=== PATIENT | female | born 1960 | race Caucasian/White ===

== ENCOUNTER 2016-05-24 20:29 | Emergency (ER) | payer BC ==
[2016-05-24 20:35] VITALS: TEMP 98.2
--- NOTE | 2016-05-24 21:03 | ED ---
Head Injury HPI - General Chief complaint: Head Injury Stated complaint: head injury/bucked off horse Time Seen by Provider: 05/24/16 20:42 Source: patient Mode of arrival: wheelchair Limitations: no limitations - History of Present Illness Initial comments: This patient's 55-year-old woman who comes in complaining that she was thrown from a horse about 5 hours ago. She states that she fell, struck her head against ground resulting in a crack to her helmet. She is not sure if she lost consciousness she believes she was dazed. The patient states that she got up and continued riding. She then states that another horse was acting up and rather than let her granddaughter ride a horse, she walked that horse home. She subsequently developed some nausea and has had 2 rounds of vomiting. She has a generalized headache, 8 out of 10 severity, constant, without worsening or relieving factors. She states she was persuaded to come here when she told her associated about the symptoms. MD Complaint: head injury, fall Onset/Timin -: hour(s) Mechanism of Injury: animal related injury Loss of Consciousness: unsure Place: outdoors Severity scale (1-10): 8 Quality: aching Consistency: constant Other Injuries: neck Associated Symptoms: nausea, vomiting, neck pain - Related Data Home Medications Medication Instructions Recorded Confirmed Gabapentin [Neurontin] 800 mg PO TID 07/10/15 05/24/16 Metaxalone [Skelaxin] 800 mg PO BID 07/10/15 05/24/16 clonazePAM [KlonoPIN] 0.5 mg PO BID PRN 07/10/15 05/24/16 rOPINIRole HCL [Requip] 0.5 mg PO HS 07/10/15 05/24/16 Cholecalciferol [Vitamin D3] 1,000 unit PO DAILY 05/24/16 05/24/16 EPINEPHrine (Auto Inject) [Epipen] 0.3 mg IM ONCE PRN 05/24/16 05/24/16 Loratadine [Claritin] 10 mg PO DAILY PRN 05/24/16 05/24/16 Magnesium 200 mg PO DAILY 05/24/16 05/24/16 Meclizine [Antivert] 25 mg PO TID PRN 05/24/16 05/24/16 Melatonin 5 mg PO HS 05/24/16 05/24/16 diphenhydrAMINE HCL [Benadryl] 25 mg PO DAILY PRN 05/24/16 05/24/16 Previous Rx's Medication Instructions Recorded Hydrocodone/Acetaminophen [[place] 1 each PO Q6HR PRN #20 tab 05/24/16 5-325] Allergies/Adverse reactions: Allergies Allergy/AdvReac Type Severity Reaction Status Date / Time bee pollen Allergy Unknown Verified 05/24/16 21:09 cephalexin monohydrate Allergy Rash/Hives Verified 05/24/16 21:09 [From Keflex] duloxetine [From Cymbalta] Allergy Unknown Verified 05/24/16 21:09 Penicillins Allergy Rash/Hives Verified 05/24/16 21:09 pregabalin [From Lyrica] Allergy Unknown Verified 05/24/16 21:09 meperidine HCl [From Demerol] AdvReac Hallucinati Verified 05/24/16 21:09 ons Review of Systems ROS Statement: Those systems with pertinent positive or pertinent negative responses have been documented in the HPI. ROS Other: All systems not noted in ROS Statement are negative. Constitutional: Denies: fever, chills, weakness Eyes: Denies: eye pain, vision change ENT: Denies: ear pain, hearing loss, epistaxis Respiratory: Denies: cough, dyspnea Cardiovascular: Denies: chest pain, palpitations Gastrointestinal: Reports: nausea, vomiting. Denies: abdominal pain, diarrhea, hematemesis Musculoskeletal: Reports: back pain Skin: Denies: rash Neurological: Denies: headache, weakness, numbness Hematological/Lymphatic: Denies: easy bleeding Past Medical History Past Medical History: Fibromyalgia History of Any Multi-Drug Resistant Organisms: None Reported Past Surgical History: Appendectomy, Cholecystectomy, Orthopedic Surgery Additional Past Surgical History / Comment(s): eye sx, ovarian cyst Past Psychological History: No Psychological Hx Reported Smoking Status: Never smoker Past Alcohol Use History: Occasional Past Drug Use History: None Reported General Exam Limitations: no limitations General appearance: alert, in no apparent distress Head exam: Present: atraumatic, normocephalic, normal inspection Eye exam: Present: normal appearance, PERRL, EOMI. Absent: scleral icterus, conjunctival injection, nystagmus, periorbital swelling, periorbital tenderness ENT exam: Present: normal oropharynx, TM's normal bilaterally Neck exam: Present: normal inspection, tenderness, full ROM Respiratory exam: Present: normal lung sounds bilaterally. Absent: respiratory distress, wheezes, rales, rhonchi, stridor, chest wall tenderness Cardiovascular Exam: Present: regular rate, normal rhythm, normal heart sounds. Absent: systolic murmur, diastolic murmur, rubs, gallop GI/Abdominal exam: Present: soft. Absent: distended, tenderness, guarding, rebound, mass Extremities exam: Present: normal inspection, full ROM, normal capillary refill. Absent: tenderness Back exam: Present: normal inspection, vertebral tenderness (Upper lumbar area) . Absent: CVA tenderness (R), CVA tenderness (L) Neurological exam: Present: alert, oriented X3, CN II-XII intact. Absent: motor sensory deficit Skin exam: Present: warm, dry, intact, normal color. Absent: rash Course Vital Signs 05/24/16 20:32 Temperature 98.2 F Pulse Rate 90 Respiratory 20 Rate Blood Pressure 138/72 O2 Sat by Pulse 99 Oximetry Medical Decision Making - Lab Data Result diagrams: 05/24/16 20:40 05/24/16 20:40 Lab Results 05/24/16 05/24/16 05/24/16 Range/Units 20:40 20:40 20:40 WBC 7.9 (3.8-10.6) k/uL RBC 4.65 (3.80-5.40) m/uL Hgb 14.0 (11.4-16.0) gm/dL Hct 42.8 (34.0-46.0) % MCV 92.1 (80.0-100.0) fL MCH 30.0 (25.0-35.0) pg MCHC 32.6 (31.0-37.0) g/dL RDW 13.2 (11.5-15.5) % Plt Count 177 (150-450) k/uL Neutrophils % 66 % Lymphocytes % 27 % Monocytes % 4 % Eosinophils % 1 % Basophils % 1 % Neutrophils # 5.3 (1.3-7.7) k/uL Lymphocytes # 2.1 (1.0-4.8) k/uL Monocytes # 0.3 (0-1.0) k/uL Eosinophils # 0.1 (0-0.7) k/uL Basophils # 0.1 (0-0.2) k/uL Sodium 142 (137-145) mmol/L Potassium 4.6 (3.5-5.1) mmol/L Chloride 106 (98-107) mmol/L Carbon Dioxide 29 (22-30) mmol/L Anion Gap 7 mmol/L BUN 12 (7-17) mg/dL Creatinine 0.91 (0.52-1.04) mg/dL Est GFR (MDRD) Af Amer >60 (>60 ml/min/1.73 sqM) Est GFR (MDRD) Non-Af >60 (>60 ml/min/1.73 sqM) Glucose 94 (74-99) mg/dL Calcium 9.7 (8.4-10.2) mg/dL Urine Color Urine Appearance (Clear) Urine pH (5.0-8.0) Ur Specific [place] (1.001-1.035) Urine Protein (Negative) Urine Glucose (UA) (Negative) Urine Ketones (Negative) Urine Blood (Negative) Urine Nitrite (Negative) Urine Bilirubin (Negative) Urine Urobilinogen (<2.0) mg/dL Ur Leukocyte Esterase (Negative) Urine WBC (0-5) /hpf Urine HCG, Qual Not Detected (Not Detectd) 05/24/16 Range/Units 20:40 WBC (3.8-10.6) k/uL RBC (3.80-5.40) m/uL Hgb (11.4-16.0) gm/dL Hct (34.0-46.0) % MCV (80.0-100.0) fL MCH (25.0-35.0) pg MCHC (31.0-37.0) g/dL RDW (11.5-15.5) % Plt Count (150-450) k/uL Neutrophils % % Lymphocytes % % Monocytes % % Eosinophils % % Basophils % % Neutrophils # (1.3-7.7) k/uL Lymphocytes # (1.0-4.8) k/uL Monocytes # (0-1.0) k/uL Eosinophils # (0-0.7) k/uL Basophils # (0-0.2) k/uL Sodium (137-145) mmol/L Potassium (3.5-5.1) mmol/L Chloride (98-107) mmol/L Carbon Dioxide (22-30) mmol/L Anion Gap mmol/L BUN (7-17) mg/dL Creatinine (0.52-1.04) mg/dL Est GFR (MDRD) Af Amer (>60 ml/min/1.73 sqM) Est GFR (MDRD) Non-Af (>60 ml/min/1.73 sqM) Glucose (74-99) mg/dL Calcium (8.4-10.2) mg/dL Urine Color Colorless Urine Appearance Clear (Clear) Urine pH 5.5 (5.0-8.0) Ur Specific [place] 1.001 (1.001-1.035) Urine Protein Negative (Negative) Urine Glucose (UA) Negative (Negative) Urine Ketones Negative (Negative) Urine Blood Negative (Negative) Urine Nitrite Negative (Negative) Urine Bilirubin Negative (Negative) Urine Urobilinogen <2.0 (<2.0) mg/dL Ur Leukocyte Esterase Trace H (Negative) Urine WBC 1 (0-5) /hpf Urine HCG, Qual (Not Detectd) Disposition Clinical Impression: Closed head injury, Back pain Disposition: HOME SELF-CARE Condition: Fair Instructions: Head Injury (ED), Acute Low Back Pain (ED) Prescriptions: Hydrocodone/Acetaminophen [[place] 5-325] 1 each PO Q6HR PRN #20 tab PRN Reason: Pain Referrals: Corbin Johnson DO [Primary Care Provider] - 1-2 days Bryce Michael DO [Doctor of Osteopathic Medicine] - 1-2 days
--- NOTE | 2016-05-24 21:24 | XR ---
EXAMINATION TYPE: XR chest 1V portable DATE OF EXAM: 05/24/2016 9:13 PM COMPARISON: NONE HISTORY: Injury. Chest pain. TECHNIQUE: Single frontal view of the chest is obtained. FINDINGS: Heart and mediastinum are normal. Lungs are clear. There is no evidence of pneumothorax. T here are chest leads. IMPRESSION: Normal chest
--- NOTE | 2016-05-24 21:37 | CT ---
EXAMINATION TYPE: CT brain sana wo con DATE OF EXAM: 05/24/2016 9:29 PM COMPARISON: None. HISTORY: pt states she was thrown off her horse CT DLP: 1397.9 mGycm Automated exposure control for dose reduction was used. TECHNIQUE: CT scan of the head and cervical spine are performed without contrast. FINDINGS: Ventricles and sulci appear normal. There is no mass effect nor midline shift. There is n o evidence of intracranial hemorrhage. Calvarium is intact. Cervical vertebra have normal alignment. There is mild spurring of the endplates from C4 to C6. Facet joints appear intact. Skull base is intact. There is no sign of a fracture. IMPRESSION: Negative CT scan of the brain. Minor degenerative disc changes in the cervical spine. No fracture.
[2016-05-24] MEDS ORDERED: HYDROcodone/APAP 5-325MG 1 EACH TAB PO STA (22:19)
--- NOTE | 2016-05-24 22:29 | XR ---
EXAM: XR Lumbar Spine, 2 or 3 Views. CLINICAL HISTORY: Reason: Pain TECHNIQUE: Frontal and lateral views of the lumbar spine. COMPARISON: No relevant prior studies available. FINDINGS: There are 5 nonrib-bearing lumbar type vertebra in normal alignment. Slight compression deformity at T12 is felt to be chronic. No acute fracture. Multilevel disc degeneration with endplate spurring. Surgical clips anterior to the lumbosacral junction and in the upper abdomen. IMPRESSION: No acute fracture. Normal alignment. Mild multilevel degenerative changes.
[2016-05-24 22:38] LABS: Appearance,Urine Clear (Clear); Bilirubin,Urine Negative (Negative); Glucose,Urine (UA) Negative (Negative); Ketones,Urine Negative (Negative); Leukocyte Esterase,Urine Trace (Negative); Nitrite,Urine Negative (Negative); PH, Urine 5.5 (5.0-8.0); Particle Count 150; Protein,Urine Negative (Negative); Specific Gravity,Urine 1.001 (1.001-1.035); UA Billing (MACRO vs. MICRO) MICRO; Urobilinogen,Urine <2.0 mg/dL (<2.0); WBC,Urine 1 /hpf (0-5)
[2016-05-24 22:41] LABS: Anion Gap 7 mmol/L; Basophils # (A) 0.1 k/uL (0-0.2); Basophils % (A) 1 %; Blood Urea Nitrogen 12 mg/dL (7-17); CH 30.6; CHCM 33.4; Calcium 9.7 mg/dL (8.4-10.2); Carbon Dioxide 29 mmol/L (22-30); Chloride 106 mmol/L (98-107); Eosinophils # (A) 0.1 k/uL (0-0.7); Eosinophils % (A) 1 %; Glucose 94 mg/dL (74-99); HCT 42.8 % (34.0-46.0); HDW 2.28; Luc % (Auto) 1; Lymphocytes # (A) 2.1 k/uL (1.0-4.8); Lymphocytes % (A) 27 %; MCHC 32.6 g/dL (31.0-37.0); MCV 92.1 fL (80.0-100.0); Mean Platelet Volume 8.9; Monocytes # (A) 0.3 k/uL (0-1.0); Monocytes % (A) 4 %; Neutrophils # (A) 5.3 k/uL (1.3-7.7); Neutrophils % (A) 66 %; Non-African American GFR(MDRD) >60 (>60 ml/min/1.73 sqM); Potassium 4.6 mmol/L (3.5-5.1); RBC 4.65 m/uL (3.80-5.40); RDW 13.2 % (11.5-15.5); Sodium 142 mmol/L (137-145); WBC 7.9 k/uL (3.8-10.6); WBC (Perox) 8.15
[2016-05-24 23:40] VITALS: BP 143/78; PULSE 62; RESP 18
== END 2016-05-24 23:40 | disposition home or self-care (01) ==
LOC: EC 20:29
DX: S09.90XA Unspecified injury of head, initial encounter (principal); M54.5 Low back pain; M54.2 Cervicalgia; R11.2 Nausea with vomiting, unspecified; M79.7 Fibromyalgia; V80.010A Animal-rider injured by fall from or being thrown from horse in noncollision accident, initial encounter; Y93.52 Activity, horseback riding; Z79.899 Other long term (current) drug therapy; Z88.5 Allergy status to narcotic agent; Z88.0 Allergy status to penicillin; Z88.8 Allergy status to other drugs, medicaments and biological substances; Z88.1 Allergy status to other antibiotic agents; Z91.030 Bee allergy status
CPT/HCPCS: 36415; 70450; 71010; 72100; 72125; 80048; 81001; 81025; 85025; 93005; 99284

== ENCOUNTER 2016-05-26 23:34 | Emergency (ER) | payer BC ==
[2016-05-26 23:44] VITALS: TEMP 97.9
[2016-05-27] MEDS ORDERED: ONDANSETRON 4 MG ODT STARTER PACK 2 TAB BTL PO STA (02:06)
[2016-05-27] MEDS ORDERED: MECLIZINE 12.5 MG TAB PO STA (02:06)
[2016-05-27] MEDS ORDERED: diphenhydrAMINE 50 MG CAP PO STA (02:07)
[2016-05-27] MEDS ORDERED: methylPREDNISolone SOD SUCCI 125 MG/2 ML VIAL IM ONE (02:07)
--- NOTE | 2016-05-27 02:07 | ED ---
Nausea/Vomiting/Diarrhea HPI - General Chief complaint: Nausea/Vomiting/Diarrhea Stated complaint: Poss Allergic Reac - Revisit Time Seen by Provider: 05/27/16 01:21 Source: patient, RN notes reviewed, old records reviewed Mode of arrival: ambulatory Limitations: no limitations - History of Present Illness Initial comments: Patient is a 55 year old female with chief complaint of headache, dizziness, nausea, and vomiting. Patient was seen in the [facility] 2 days ago after being bucked off a horse and had head trauma, CT preformed at that time was negative. Patient states she was discharged with norco for her headache and neck and back pain. She reports she took the norco today, and broke out in hives. She states that she vomited multiple times today, and feels like the room is spinning. - Related Data Home Medications Medication Instructions Recorded Confirmed Gabapentin [Neurontin] 800 mg PO TID 07/10/15 05/24/16 Metaxalone [Skelaxin] 800 mg PO BID 07/10/15 05/24/16 clonazePAM [KlonoPIN] 0.5 mg PO BID PRN 07/10/15 05/24/16 rOPINIRole HCL [Requip] 0.5 mg PO HS 07/10/15 05/24/16 Cholecalciferol [Vitamin D3] 1,000 unit PO DAILY 05/24/16 05/24/16 EPINEPHrine (Auto Inject) [Epipen] 0.3 mg IM ONCE PRN 05/24/16 05/24/16 Loratadine [Claritin] 10 mg PO DAILY PRN 05/24/16 05/24/16 Magnesium 200 mg PO DAILY 05/24/16 05/24/16 Meclizine [Antivert] 25 mg PO TID PRN 05/24/16 05/24/16 Melatonin 5 mg PO HS 05/24/16 05/24/16 diphenhydrAMINE HCL [Benadryl] 25 mg PO DAILY PRN 05/24/16 05/24/16 Previous Rx's Medication Instructions Recorded Hydrocodone/Acetaminophen [[place] 1 each PO Q6HR PRN #20 tab 05/24/16 5-325] Meclizine HCl 12.5 mg PO TID #15 tab 05/27/16 Ondansetron Odt [Zofran Odt] 4 mg PO Q8HR PRN #12 tab 05/27/16 Allergies Allergy/AdvReac Type Severity Reaction Status Date / Time acetaminophen [From [place]] Allergy Unknown Verified 05/26/16 23:45 bee pollen Allergy Unknown Verified 05/26/16 23:44 cephalexin monohydrate Allergy Rash/Hives Verified 05/26/16 23:44 [From Keflex] duloxetine [From Cymbalta] Allergy Unknown Verified 05/26/16 23:44 hydrocodone [From [place]] Allergy Unknown Verified 05/26/16 23:45 Penicillins Allergy Rash/Hives Verified 05/26/16 23:44 pregabalin [From Lyrica] Allergy Unknown Verified 05/26/16 23:44 meperidine HCl [From Demerol] AdvReac Hallucinati Verified 05/26/16 23:44 ons Review of Systems ROS Statement: Those systems with pertinent positive or pertinent negative responses have been documented in the HPI. ROS Other: All systems not noted in ROS Statement are negative. Past Medical History Past Medical History: Fibromyalgia History of Any Multi-Drug Resistant Organisms: None Reported Past Surgical History: Appendectomy, Cholecystectomy, Orthopedic Surgery Additional Past Surgical History / Comment(s): eye sx, ovarian cyst Past Psychological History: No Psychological Hx Reported Smoking Status: Never smoker Past Alcohol Use History: Occasional Past Drug Use History: None Reported General Exam Limitations: no limitations General appearance: alert, in no apparent distress Head exam: Present: atraumatic, normocephalic, normal inspection Eye exam: Present: normal appearance, PERRL, EOMI. Absent: scleral icterus, conjunctival injection, periorbital swelling ENT exam: Present: normal exam, mucous membranes moist Neck exam: Present: normal inspection. Absent: tenderness, meningismus, lymphadenopathy Respiratory exam: Present: normal lung sounds bilaterally. Absent: respiratory distress, wheezes, rales, rhonchi, stridor Cardiovascular Exam: Present: regular rate, normal rhythm, normal heart sounds. Absent: systolic murmur, diastolic murmur, rubs, gallop, clicks GI/Abdominal exam: Present: soft, normal bowel sounds. Absent: distended, tenderness, guarding, rebound, rigid Extremities exam: Present: normal inspection, full ROM, normal capillary refill. Absent: tenderness, pedal edema, joint swelling, calf tenderness Back exam: Present: normal inspection Neurological exam: Present: alert, oriented X3, CN II-XII intact Psychiatric exam: Present: normal affect, normal mood Skin exam: Present: warm, dry, intact, normal color. Absent: rash Course Vital Signs 05/26/16 05/27/16 23:42 04:39 Temperature 97.9 F Pulse Rate 66 58 L Respiratory 18 16 Rate Blood Pressure 139/70 132/80 O2 Sat by Pulse 100 94 L Oximetry Medical Decision Making - Medical Decision Making Patient is a 56 year old female with allergic reaction to pain medication she received after a closed head injury 2 days ago after being bucked off a horse. Patient states she has been vomiting, and the room is spining. Patient had a subsequent CT of brain due to these alarming symptoms. CT was negative. Patient given Toradol, zofran, meclinzine, benadryl and steroids. PAtient reports that she is feeling much better, states that she is not dizzy at this time and wants to go home. Patient given a neurologist referral, diagnosed with post concussive syndrome. Disposition Clinical Impression: Allergic reaction caused by a drug, Post-concussion syndrome Disposition: HOME SELF-CARE Condition: Good Instructions: Acute Nausea and Vomiting (ED), Post Concussion Syndrome (ED) Additional Instructions: Follow-up with neurologist to discuss postconcussive syndrome. Take nausea medicine and dizzy medication. Patient advised to return to emergency Department if any alarming signs or symptoms occur. Continue to take Benadryl for the next 24 hours. Prescriptions: Meclizine HCl 12.5 mg PO TID #15 tab Ondansetron Odt [Zofran Odt] 4 mg PO Q8HR PRN #12 tab PRN Reason: Nausea Referrals: Corbin Johnson DO [Primary Care Provider] - 1-2 days Jeffery Moncada MD [STAFF PHYSICIAN] - 1-2 days Time of Disposition: 04:20
--- NOTE | 2016-05-27 03:02 | CT ---
EXAM: CT Head Without Intravenous Contrast. CLINICAL HISTORY: Vomiting TECHNIQUE: Axial computed tomography images of the head/brain without intravenous contrast. CTDI is 57.4 mGy and DLP is 1012.7 mGy-cm This CT exam was performed using one or more of the following dose reduction techniques: automated exposure control, adjustment of the mA and/or kV according to patient size, and/or use of iterative reconstruction technique. COMPARISON: 05/24/2016 FINDINGS: Brain: No evidence of acute infarct, hemorrhage, mass or edema. No significant white matter disease. Ventricles: Unremarkable. No ventriculomegaly. Bones/joints: Unremarkable. No acute fracture. Soft tissues: Unremarkable. Sinuses: Unremarkable as visualized. No acute sinusitis. Mastoid air cells: Unremarkable as visualized. No mastoid effusion. IMPRESSION: No acute findings.
[2016-05-27] MEDS ORDERED: KETOROLAC 60 MG/2 ML VIAL IM STA (03:44)
[2016-05-27 04:40] VITALS: BP 132/80; PULSE 58; RESP 16
== END 2016-05-27 04:40 | disposition home or self-care (01) ==
LOC: EC 23:34
DX: R11.2 Nausea with vomiting, unspecified (principal); R51 Headache; R19.7 Diarrhea, unspecified; T40.605A Adverse effect of unspecified narcotics, initial encounter; F07.81 Postconcussional syndrome; M79.7 Fibromyalgia; Z79.899 Other long term (current) drug therapy; Z88.6 Allergy status to analgesic agent; Z91.030 Bee allergy status; Z88.1 Allergy status to other antibiotic agents; Z88.0 Allergy status to penicillin; Z88.5 Allergy status to narcotic agent; Z88.8 Allergy status to other drugs, medicaments and biological substances
CPT/HCPCS: 99284; 96372 ×2; 70450; J2930; J1885; S0119

== ENCOUNTER 2016-08-04 21:32 | Emergency (ER) | payer BC ==
[2016-08-04] MEDS ORDERED: HYDROmorphone 1 MG/ML 1 ML SYRINGE IVP STA (21:55)
[2016-08-04] MEDS ORDERED: RX INFO: IV CONTRAST WAS GIVEN 1 EACH MISC MISCELLANE PRN (21:55)
[2016-08-04] MEDS ORDERED: SODIUM CHLORIDE 0.9% 1,000 ML IV STA (21:55)
[2016-08-04 21:56] VITALS: RESP 20; TEMP 97.3
[2016-08-04 21:57] LABS: Glucose,Whole Blood 91 mg/dL (75-99)
[2016-08-04 21:58] VITALS: BP 134/89; PULSE 81
--- NOTE | 2016-08-04 21:59 | ED ---
General Adult HPI - General Chief complaint: Trauma Stated complaint: thrown off horse/loss of consciousness Time Seen by Provider: 08/04/16 21:48 Source: patient, family, RN notes reviewed Mode of arrival: wheelchair Limitations: no limitations - History of Present Illness Initial comments: Patient is a pleasant 56-year-old female presenting to the emergency department after falling off a horse. Patient is unclear exact mechanism. Patient does recall being on the horse and believes it was spooked. Patient next remembers waking up on the ground. Patient was wearing a helmet. Patient denies any headache. Patient has some neck discomfort however this is chronic and unchanged. Patient has some lower back discomfort however is unclear if this is changed from her chronic discomfort or not. No chest pain. No dyspnea. No abdominal pain. Patient has some discomfort of the back of her left hip. Patient was able to take a few steps after the accident. Patient does not feel confused. - Related Data Home Medications Medication Instructions Recorded Confirmed Gabapentin [Neurontin] 800 mg PO TID 07/10/15 08/04/16 clonazePAM [KlonoPIN] 0.5 mg PO BID PRN 07/10/15 08/04/16 Melatonin 5 mg PO HS 05/24/16 08/04/16 Cyclobenzaprine [Flexeril] 5 mg PO QAM 08/04/16 08/04/16 Cyclobenzaprine [Flexeril] 10 mg PO HS 08/04/16 08/04/16 FLUoxetine HCL [PROzac] 40 mg PO BID 08/04/16 08/04/16 Meclizine HCl 12.5 mg PO Q8H PRN 08/04/16 08/04/16 rOPINIRole HCL [Requip] 0.25 mg PO HS 08/04/16 08/04/16 Allergies Allergy/AdvReac Type Severity Reaction Status Date / Time cephalexin monohydrate Allergy Rash/Hives Verified 08/04/16 22:41 [From Keflex] hydrocodone [From [place]] Allergy Rash/Hives Verified 08/04/16 22:41 Penicillins Allergy Anaphylaxis Verified 08/04/16 22:41 venom-honey bee Allergy Rash/Hives Verified 08/04/16 22:41 duloxetine [From Cymbalta] AdvReac Enhanced Verified 08/04/16 22:41 Pain meperidine HCl [From Demerol] AdvReac Hallucinati Verified 08/04/16 22:41 ons pregabalin [From Lyrica] AdvReac Altered Verified 08/04/16 22:41 Mental Status Review of Systems ROS Statement: Those systems with pertinent positive or pertinent negative responses have been documented in the HPI. ROS Other: All systems not noted in ROS Statement are negative. Constitutional: Denies: fever Eyes: Denies: eye pain ENT: Denies: ear pain Respiratory: Denies: cough, dyspnea Cardiovascular: Denies: chest pain Endocrine: Denies: fatigue Gastrointestinal: Denies: abdominal pain Genitourinary: Denies: dysuria Musculoskeletal: Reports: back pain Skin: Denies: rash Neurological: Denies: headache, weakness, confusion Past Medical History Past Medical History: Fibromyalgia History of Any Multi-Drug Resistant Organisms: None Reported Past Surgical History: Appendectomy, Cholecystectomy, Orthopedic Surgery Additional Past Surgical History / Comment(s): eye sx, ovarian cyst,hand surgery Past Psychological History: No Psychological Hx Reported Smoking Status: Never smoker Past Alcohol Use History: Occasional Past Drug Use History: None Reported General Exam Limitations: no limitations General appearance: alert, in no apparent distress Head exam: Present: atraumatic, normocephalic Eye exam: Present: normal appearance, PERRL, EOMI. Absent: nystagmus ENT exam: Present: normal oropharynx Neck exam: Present: normal inspection, tenderness (Mild tenderness lower cervical spine which patient feels is chronic) Respiratory exam: Present: normal lung sounds bilaterally Cardiovascular Exam: Present: regular rate, normal rhythm GI/Abdominal exam: Present: soft. Absent: tenderness Extremities exam: Present: full ROM (Mild discomfort with flexion at the left hip.), tenderness (Minimal tenderness left lateral hip) Back exam: Present: tenderness (Moderate tenderness lower lumbar spine and left paralumbar region) Neurological exam: Present: alert, oriented X3, CN II-XII intact. Absent: motor sensory deficit Expanded Cranial nerves: EOM's Intact: Normal Motor strength exam: RUE: 5, LUE: 5, RLE: 5, LLE: 5 Psychiatric exam: Present: normal affect, normal mood Skin exam: Present: normal color Course Vital Signs 08/04/16 08/04/16 21:40 21:54 Temperature 97.3 F L Pulse Rate 88 81 Respiratory 20 20 Rate Blood Pressure 149/74 134/89 O2 Sat by Pulse 100 98 Oximetry - Reevaluation(s) Reevaluation #1: 08/04/16 21:47 case was discussed with Dr. Chavez EKG Findings - EKG Comments: EKG Findings:: Sinus rhythm at 81. CA 154. QRS 82. QT 382. QTC 443. Normal axis. Normal QRS. Normal ST-T. Medical Decision Making - Medical Decision Making Patient reevaluated and resting comfortably in bed. Patient is starting to complain of some shortness of breath. Computed tomography scan is questionable for pulmonary contusion however with patient starting to have some soreness of breath patient should be observed overnight. Secondary to loss of consciousness and diagnosis of concussion patient will need to be transferred based on hospital policy. Patient and family were updated on results and plan. Case discussed with Dr. Ceballos at [facility], who will accept transfer. - Lab Data Result diagrams: 08/04/16 21:57 08/04/16 21:57 Lab Results 08/04/16 08/04/16 08/04/16 Range/Units 21:55 21:57 21:57 WBC 12.9 H (3.8-10.6) k/uL RBC 4.59 (3.80-5.40) m/uL Hgb 14.2 (11.4-16.0) gm/dL Hct 42.9 (34.0-46.0) % MCV 93.5 (80.0-100.0) fL MCH 30.9 (25.0-35.0) pg MCHC 33.0 (31.0-37.0) g/dL RDW 12.8 (11.5-15.5) % Plt Count 223 (150-450) k/uL Neutrophils % 78 % Lymphocytes % 16 % Monocytes % 4 % Eosinophils % 1 % Basophils % 0 % Neutrophils # 10.1 H (1.3-7.7) k/uL Lymphocytes # 2.1 (1.0-4.8) k/uL Monocytes # 0.5 (0-1.0) k/uL Eosinophils # 0.2 (0-0.7) k/uL Basophils # 0.1 (0-0.2) k/uL PT (9.0-12.0) sec INR (<1.1) APTT (22.0-30.0) sec Sodium (137-145) mmol/L Potassium (3.5-5.1) mmol/L Chloride (98-107) mmol/L Carbon Dioxide (22-30) mmol/L Anion Gap mmol/L BUN (7-17) mg/dL Creatinine (0.52-1.04) mg/dL Est GFR (MDRD) Af Amer (>60 ml/min/1.73 sqM) Est GFR (MDRD) Non-Af (>60 ml/min/1.73 sqM) Glucose (74-99) mg/dL POC Glucose (mg/dL) 91 (75-99) mg/dL POC Glu Body Welder ID [place], [place] Plasma Lactic Acid August (0.7-2.0) mmol/L Calcium (8.4-10.2) mg/dL Total Bilirubin (0.2-1.3) mg/dL AST (14-36) U/L ALT (9-52) U/L Alkaline Phosphatase (38-126) U/L Total Creatine Kinase (30-135) U/L CK-MB (CK-2) (0.0-2.4) ng/mL CK-MB (CK-2) Rel Index Troponin I (0.000-0.034) ng/mL Total Protein (6.3-8.2) g/dL Albumin (3.5-5.0) g/dL Amylase (30-110) U/L Lipase (23-300) U/L Serum Alcohol mg/dL Blood Type AB Positive Blood Type Confirm Blood Type Recheck CABO Indicated Antibody Screen NEGATIVE Spec Expiration Date 08/07/2016235608/04/16 08/04/16 08/04/16 Range/Units 21:57 21:57 21:57 WBC (3.8-10.6) k/uL RBC (3.80-5.40) m/uL Hgb (11.4-16.0) gm/dL Hct (34.0-46.0) % MCV (80.0-100.0) fL MCH (25.0-35.0) pg MCHC (31.0-37.0) g/dL RDW (11.5-15.5) % Plt Count (150-450) k/uL Neutrophils % % Lymphocytes % % Monocytes % % Eosinophils % % Basophils % % Neutrophils # (1.3-7.7) k/uL Lymphocytes # (1.0-4.8) k/uL Monocytes # (0-1.0) k/uL Eosinophils # (0-0.7) k/uL Basophils # (0-0.2) k/uL PT 9.5 (9.0-12.0) sec INR 0.9 (<1.1) APTT 21.2 L (22.0-30.0) sec Sodium 142 (137-145) mmol/L Potassium 4.4 (3.5-5.1) mmol/L Chloride 106 (98-107) mmol/L Carbon Dioxide 27 (22-30) mmol/L Anion Gap 9 mmol/L BUN 12 (7-17) mg/dL Creatinine 0.80 (0.52-1.04) mg/dL Est GFR (MDRD) Af Amer >60 (>60 ml/min/1.73 sqM) Est GFR (MDRD) Non-Af >60 (>60 ml/min/1.73 sqM) Glucose 99 (74-99) mg/dL POC Glucose (mg/dL) (75-99) mg/dL POC Glu Body Welder ID Plasma Lactic Acid Auugst (0.7-2.0) mmol/L Calcium 10.3 H (8.4-10.2) mg/dL Total Bilirubin 0.4 (0.2-1.3) mg/dL AST 57 H (14-36) U/L ALT 57 H (9-52) U/L Alkaline Phosphatase 105 (38-126) U/L Total Creatine Kinase 246 H (30-135) U/L CK-MB (CK-2) 3.3 H* (0.0-2.4) ng/mL CK-MB (CK-2) Rel Index 1.3 Troponin I <0.012 (0.000-0.034) ng/mL Total Protein 7.1 (6.3-8.2) g/dL Albumin 4.4 (3.5-5.0) g/dL Amylase 77 (30-110) U/L Lipase 212 (23-300) U/L Serum Alcohol <10 mg/dL Blood Type Blood Type Confirm Blood Type Recheck Antibody Screen Spec Expiration Date 08/04/16 08/04/16 Range/Units 21:57 21:58 WBC (3.8-10.6) k/uL RBC (3.80-5.40) m/uL Hgb (11.4-16.0) gm/dL Hct (34.0-46.0) % MCV (80.0-100.0) fL MCH (25.0-35.0) pg MCHC (31.0-37.0) g/dL RDW (11.5-15.5) % Plt Count (150-450) k/uL Neutrophils % % Lymphocytes % % Monocytes % % Eosinophils % % Basophils % % Neutrophils # (1.3-7.7) k/uL Lymphocytes # (1.0-4.8) k/uL Monocytes # (0-1.0) k/uL Eosinophils # (0-0.7) k/uL Basophils # (0-0.2) k/uL PT (9.0-12.0) sec INR (<1.1) APTT (22.0-30.0) sec Sodium (137-145) mmol/L Potassium (3.5-5.1) mmol/L Chloride (98-107) mmol/L Carbon Dioxide (22-30) mmol/L Anion Gap mmol/L BUN (7-17) mg/dL Creatinine (0.52-1.04) mg/dL Est GFR (MDRD) Af Amer (>60 ml/min/1.73 sqM) Est GFR (MDRD) Non-Af (>60 ml/min/1.73 sqM) Glucose (74-99) mg/dL POC Glucose (mg/dL) (75-99) mg/dL POC Glu Body Welder ID Plasma Lactic Acid August 1.4 (0.7-2.0) mmol/L Calcium (8.4-10.2) mg/dL Total Bilirubin (0.2-1.3) mg/dL AST (14-36) U/L ALT (9-52) U/L Alkaline Phosphatase (38-126) U/L Total Creatine Kinase (30-135) U/L CK-MB (CK-2) (0.0-2.4) ng/mL CK-MB (CK-2) Rel Index Troponin I (0.000-0.034) ng/mL Total Protein (6.3-8.2) g/dL Albumin (3.5-5.0) g/dL Amylase (30-110) U/L Lipase (23-300) U/L Serum Alcohol mg/dL Blood Type Blood Type Confirm AB Positive Blood Type Recheck Antibody Screen Spec Expiration Date - Radiology Data Radiology results: report reviewed (Computed tomography scan of the brain cervical spine shows no acute process. Computed tomography scan of the abdomen and pelvis shows possible pulmonary contusion at the base of the lung versus atelectasis versus pneumonitis. Fracture left L2 through L4 transverse process. ), image reviewed (X-ray of the pelvis shows no acute fracture or dislocation. One view chest x-ray shows no acute process.) Critical Care Time Critical Care Time: Yes Total Critical Care Time: 31 Disposition Clinical Impression: Concussion, Lumbar transverse process fracture, Pulmonary contusion Disposition: OTHER INSTITUTION NOT DEFINED Referrals: Corbin Johnson DO [Primary Care Provider] - 1-2 days Time of Disposition: 23:57 - Out of Hospital Transfer - Req. Specs Out of Hospital Transfer - Requested Specifics: Other Emergency Center
--- NOTE | 2016-08-04 22:13 | XR ---
EXAM: XR Chest, 1 View CLINICAL HISTORY: Reason: trauma TECHNIQUE: Frontal view of the chest. COMPARISON: 05/24/16. FINDINGS: Lungs: No consolidation. Pleural space: Unremarkable. No pneumothorax. Heart: Stable cardiomediastinal silhouette. Mediastinum: See above. Bones/joints: Unremarkable. IMPRESSION: No acute cardiopulmonary disease.
[2016-08-04 22:19] LABS: Basophils # (A) 0.1 k/uL (0-0.2); Basophils % (A) 0 %; CH 30.3; CHCM 32.6; Eosinophils # (A) 0.2 k/uL (0-0.7); Eosinophils % (A) 1 %; HCT 42.9 % (34.0-46.0); HDW 2.26; HGB 14.2 gm/dL (11.4-16.0); Luc # (Auto) 0.09; Luc % (Auto) 1; Lymphocytes # (A) 2.1 k/uL (1.0-4.8); Lymphocytes % (A) 16 %; MCH 30.9 pg (25.0-35.0); MCV 93.5 fL (80.0-100.0); Mean Platelet Volume 8.4; Monocytes # (A) 0.5 k/uL (0-1.0); Monocytes % (A) 4 %; Neutrophils # (A) 10.1 k/uL (1.3-7.7); Neutrophils % (A) 78 %; RBC 4.59 m/uL (3.80-5.40); RDW 12.8 % (11.5-15.5); WBC 12.9 k/uL (3.8-10.6); WBC (Perox) 12.81
--- NOTE | 2016-08-04 22:19 | XR ---
EXAM: XR Pelvis, 1 or 2 Views CLINICAL HISTORY: Reason: Trauma TECHNIQUE: Frontal view of the pelvis. COMPARISON: No relevant prior studies available. FINDINGS: Bones/joints: No acute fracture. No dislocation. Soft tissues: Surgical clips in the pelvis. Rounded calcific densities in the lower pelvis, probable phleboliths. Other findings: A 6 x 8 mm opacity overlying the right ilium. Moderate-large amount of stool in the colon. IMPRESSION: 1. No evidence of acute fracture or dislocation. 2. A 6 x 8 mm opacity overlying the right ilium. Correlate clinically to exclude foreign body.
[2016-08-04 22:24] LABS: ALT 57 U/L (9-52); AST 57 U/L (14-36); Alcohol <10 mg/dL; Alkaline Phosphatase 105 U/L (38-126); Amylase 77 U/L (30-110); Anion Gap 9 mmol/L; Blood Urea Nitrogen 12 mg/dL (7-17); Calcium 10.3 mg/dL (8.4-10.2); Carbon Dioxide 27 mmol/L (22-30); Chloride 106 mmol/L (98-107); Glucose 99 mg/dL (74-99); Non-African American GFR(MDRD) >60 (>60 ml/min/1.73 sqM); Potassium 4.4 mmol/L (3.5-5.1); Sodium 142 mmol/L (137-145); Total Bilirubin 0.4 mg/dL (0.2-1.3); Total Protein 7.1 g/dL (6.3-8.2)
[2016-08-04 22:31] LABS: Creatine Kinase 246 U/L (30-135)
[2016-08-04 22:35] LABS: INR 0.9 (<1.1); Prothrombin Time 9.5 sec (9.0-12.0)
[2016-08-04 22:41] LABS: Partial Thromboplastin Time 21.2 sec (22.0-30.0)
[2016-08-04 22:44] LABS: Troponin I <0.012 ng/mL (0.000-0.034)
[2016-08-04 22:48] LABS: Creatine Kinase MB 3.3 ng/mL (0.0-2.4)
--- NOTE | 2016-08-04 23:08 | CT ---
EXAM: CT Lumbar Spine Without Intravenous Contrast CLINICAL HISTORY: Reason: trauma TECHNIQUE: Axial computed tomography images of the lumbar spine without intravenous contrast. CTDI is 12.4 mGy and DLP is 613.8 mGy-cm. This CT exam was performed using one or more of the following dose reduction techniques: automated exposure control, adjustment of the mA and/or kV according to patient size, and/or use of iterative reconstruction technique. COMPARISON: No relevant prior studies available. FINDINGS: Vertebrae: Fracture of the left L2-L4 transverse processes. No subluxation. Discs/spinal canal/neural foramina: Mild degenerative changes. No critical central canal stenosis. IMPRESSION: Fracture of the left L2-L4 transverse processes.
--- NOTE | 2016-08-04 23:20 | CT ---
EXAM: CT Abdomen and Pelvis With Intravenous Contrast CLINICAL HISTORY: Reason: trauma TECHNIQUE: Axial computed tomography images of the abdomen and pelvis with intravenous contrast. CTDI is 12.4 mGy and DLP is 613.8 mGy-cm. This CT exam was performed using one or more of the following dose reduction techniques: automated exposure control, adjustment of the mA and/or kV according to patient size, and/or use of iterative reconstruction technique. COMPARISON: No relevant prior studies available. FINDINGS: Lower thorax: Bibasilar densities, possible atelectasis, contusions, or pneumonitis. ABDOMEN: Liver: Enlarged fatty liver. Gallbladder and bile ducts: Dilated common bile duct status post cholecystectomy. Pancreas: Unremarkable. Spleen: Unremarkable. Adrenals: Unremarkable. Kidneys and ureters: Unremarkable. No hydronephrosis. Stomach and bowel: Calcific density seen on prior pelvic film is within the cecum. Stool-filled colon. No evidence of bowel obstruction. PELVIS: Bladder: Unremarkable. Reproductive: Unremarkable as visualized. ABDOMEN and PELVIS: Intraperitoneal space: Surgical clips in the pelvis. No free air. No significant fluid collection. Bones/joints: Fracture of the left L2-L4 transverse processes. Soft tissues: Tiny fat-containing umbilical hernia. Vasculature: Unremarkable. Lymph nodes: Unremarkable. IMPRESSION: 1. Fracture of the left L2-L4 transverse processes. 2. No acute intra-abdominal injury. 3. Bibasilar densities, possible atelectasis, contusions, or pneumonitis.
--- NOTE | 2016-08-04 23:34 | CT ---
EXAM: CT Head Without Intravenous Contrast CLINICAL HISTORY: Reason: trauma TECHNIQUE: Axial computed tomography images of the head/brain without intravenous contrast. CTDI is 60.3 mGy and DLP is 1180.9 mGy-cm. This CT exam was performed using one or more of the following dose reduction techniques: automated exposure control, adjustment of the mA and/or kV according to patient size, and/or use of iterative reconstruction technique. COMPARISON: CT 05/27/16. FINDINGS: Brain: No hemorrhage. No acute cortical infarct. No mass effect or midline shift. Ventricles: Unremarkable. Bones/joints: No acute fracture. Soft tissues: Unremarkable. Sinuses: Unremarkable as visualized. Mastoid air cells: Minimal right mastoid fluid. IMPRESSION: No intracranial hemorrhage or skull fracture. EXAM: CT Cervical Spine Without Intravenous Contrast CLINICAL HISTORY: Reason: trauma TECHNIQUE: Axial computed tomography images of the cervical spine without intravenous contrast. CTDI is 19.3 mGy and DLP is 344.5 mGy-cm. This CT exam was performed using one or more of the following dose reduction techniques: automated exposure control, adjustment of the mA and/or kV according to patient size, and/or use of iterative reconstruction technique. COMPARISON: CT 05/24/16. FINDINGS: Vertebrae: No acute fracture. No subluxation. Discs/spinal canal/neural foramina: Mild degenerative changes similar to prior study. Soft tissues: Unremarkable. Lung apices: Unremarkable as visualized. IMPRESSION: No acute fracture or subluxation.
[2016-08-04] MEDS ORDERED: MORPHINE SULFATE 4 MG/ML SYRINGE IV STA (23:54)
== END 2016-08-05 00:10 | disposition other institution (70) ==
LOC: EC 21:32
DX: S06.0X9A Concussion with loss of consciousness of unspecified duration, initial encounter (principal); S32.029A Unspecified fracture of second lumbar vertebra, initial encounter for closed fracture; S32.039A Unspecified fracture of third lumbar vertebra, initial encounter for closed fracture; S32.049A Unspecified fracture of fourth lumbar vertebra, initial encounter for closed fracture; S27.329A Contusion of lung, unspecified, initial encounter; M25.552 Pain in left hip; M54.2 Cervicalgia; R06.02 Shortness of breath; M79.7 Fibromyalgia; Z79.899 Other long term (current) drug therapy; Z88.0 Allergy status to penicillin; Z88.1 Allergy status to other antibiotic agents; Z88.5 Allergy status to narcotic agent; Z88.8 Allergy status to other drugs, medicaments and biological substances; Z91.030 Bee allergy status; V80.010A Animal-rider injured by fall from or being thrown from horse in noncollision accident, initial encounter; Y92.89 Other specified places as the place of occurrence of the external cause
CPT/HCPCS: 36415; 86900; 86901; 80053; 82150; 82550; 82553; 83605; 83690; 84484; 85025; 85610; 85730; 86850; 80320; 71010; 72170; 72125; 72131; 70450; 74177; 99291; 96374; 96375; 96361 ×2; J2270; J1170; Q9967

== ENCOUNTER 2016-09-10 16:24 | Emergency (ER) | payer BC ==
[2016-09-10 16:33] VITALS: BP 136/82; PULSE 103; RESP 20; TEMP 97.4
[2016-09-10] MEDS ORDERED: FAMOTIDINE 20 MG/2 ML VIAL IV STA (17:21)
[2016-09-10] MEDS ORDERED: SODIUM CHLORIDE 0.9% 1,000 ML IV STA (17:21)
[2016-09-10] MEDS ORDERED: methylPREDNISolone SOD SUCCI 125 MG/2 ML VIAL IV STA (17:21)
[2016-09-10] MEDS ORDERED: HYDROCORTISONE 1% CREAM 30 GM TUBE TOPICAL PRN (17:38)
--- NOTE | 2016-09-10 17:40 | ED ---
General Adult HPI - General Chief complaint: Allergic Reaction Stated complaint: Poss allergic reaction to bee Time Seen by Provider: 09/10/16 16:56 Source: patient, RN notes reviewed Mode of arrival: wheelchair Limitations: no limitations - History of Present Illness Initial comments: Patient 56-year-old female who presents emergency room today with a chief complaint of possible ALLERGIC reaction. She does admit that her horse ran off into the [place] and she had a run-in after at this point. She states that she has increased burning and itching to her lower extremities. She also admits that she was stung by a bee in the back of her right knee. Patient does admit that she took Benadryl a total of 75 mg over the last 2 hours. She states she still experiencing the symptoms. Denies any difficulty breathing or swallowing. Denies any other complaints at this time. Patient denies any recent fever, chills, shortness of breath, chest pain, back pain, abdominal pain , nausea or vomiting, numbness or tingling, dysuria or hematuria, constipation or diarrhea, headaches or visual changes, or any other complaints. - Related Data Home Medications Medication Instructions Recorded Confirmed clonazePAM [KlonoPIN] 0.5 mg PO BID PRN 07/10/15 09/10/16 Cyclobenzaprine [Flexeril] 5 mg PO BID PRN 08/04/16 09/10/16 FLUoxetine HCL [PROzac] 40 mg PO BID 08/04/16 09/10/16 Meclizine HCl 12.5 mg PO Q8H PRN 08/04/16 09/10/16 rOPINIRole HCL [Requip] 0.25 mg PO HS 08/04/16 09/10/16 Previous Rx's Medication Instructions Recorded Famotidine [Pepcid] 20 mg PO BID #20 tablet 09/10/16 Hydrocortisone Cream 1 applic TOPICAL TID #1 cream..g. 09/10/16 [Hydrocortisone 1% Cream] diphenhydrAMINE [Benadryl] 1 - 2 tab PO Q6HR PRN #30 capsule 09/10/16 predniSONE 60 mg PO DAILY 5 Days 09/10/16 Allergies Allergy/AdvReac Type Severity Reaction Status Date / Time cephalexin monohydrate Allergy Rash/Hives Verified 09/10/16 17:04 [From Keflex] hydrocodone [From Metaline] Allergy Rash/Hives Verified 09/10/16 17:04 Penicillins Allergy Anaphylaxis Verified 09/10/16 17:04 venom-honey bee Allergy Rash/Hives Verified 09/10/16 17:04 duloxetine [From Cymbalta] AdvReac Enhanced Verified 09/10/16 17:04 Pain meperidine HCl [From Demerol] AdvReac Hallucinati Verified 09/10/16 17:04 ons pregabalin [From Lyrica] AdvReac Altered Verified 09/10/16 17:04 Mental Status Review of Systems ROS Statement: Those systems with pertinent positive or pertinent negative responses have been documented in the HPI. ROS Other: All systems not noted in ROS Statement are negative. Past Medical History Past Medical History: Fibromyalgia Additional Past Medical History / Comment(s): L1-L4 fracture History of Any Multi-Drug Resistant Organisms: None Reported Past Surgical History: Appendectomy, Cholecystectomy, Orthopedic Surgery Additional Past Surgical History / Comment(s): eye sx, ovarian cyst,hand surgery Past Psychological History: No Psychological Hx Reported Smoking Status: Never smoker Past Alcohol Use History: Occasional Past Drug Use History: None Reported General Exam - General Exam Comments Initial Comments: General: The patient is awake and alert, in no distress, and does not appear acutely ill. Eye: Pupils are equal, round and reactive to light, extra-ocular movements are intact. No nystagmus. There is normal conjunctiva bilaterally. No signs of icterus. Ears, nose, mouth and throat: There are moist mucous membranes and no oral lesions. No angioedema. No lip swelling or difficulty swallowing or breathing. Neck: The neck is supple, there is no tenderness or JVD. Cardiovascular: There is a regular rate and rhythm. No murmur, rub or gallop is appreciated. Respiratory: Lungs are clear to auscultation, respirations are non-labored, breath sounds are equal. No wheezes, stridor, rales, or rhonchi. Gastrointestinal: Soft, non-distended, non-tender abdomen without masses or organomegaly noted. There is no rebound or guarding present. No CVA tenderness. Bowel sounds are unremarkable. Musculoskeletal: Normal ROM, no tenderness. Strength 5/5. Sensation intact. Pulses equal bilaterally 2+. Neurological: A&O x 3. CN II-XII intact, There are no obvious motor or sensory deficits. Coordination appears grossly intact. Speech is normal. Skin: Patient does have diffuse excoriations to the lower extremities from scratching. Increased redness or erythema locally. Psychiatric: Cooperative, appropriate mood & affect, normal judgment. Limitations: no limitations Course Vital Signs 09/10/16 16:31 Temperature 97.4 F L Pulse Rate 103 H Respiratory 20 Rate Blood Pressure 136/82 O2 Sat by Pulse 97 Oximetry Medical Decision Making - Medical Decision Making Patient reexamined at this time does admit to improvement after steroids, Pepcid here in the emergency room. Patient did take Benadryl at home prior to arrival. Patient given steroid cream. Emergency room. She is advised to go home on clonidine. Please steroid cream on top. Advised to use cool dressings if needed for skin irritation. Advised continue with Benadryl, Pepcid, steroids. Advised return for any other concerns. Disposition Clinical Impression: Allergic reaction Disposition: HOME SELF-CARE Condition: Good Instructions: Anaphylaxis (ED) Additional Instructions: Please use medication as discussed. Please follow-up with family doctor in the next 2 days of symptoms have not improved. Please return to emergency room if the symptoms increase or worsen or for any other concerns. Prescriptions: diphenhydrAMINE [Benadryl] 1 - 2 tab PO Q6HR PRN #30 capsule PRN Reason: Allergic Reaction Famotidine [Pepcid] 20 mg PO BID #20 tablet Hydrocortisone Cream [Hydrocortisone 1% Cream] 1 applic TOPICAL TID #1 cream..g. predniSONE 60 mg PO DAILY 5 Days Referrals: Corbin Johnson DO [Primary Care Provider] - 1-2 days Time of Disposition: 18:20
[2016-09-10] MEDS ORDERED: KETOROLAC 30 MG/ML 1 ML VIAL IVP STA (18:19)
== END 2016-09-10 18:47 | disposition home or self-care (01) ==
LOC: EC 16:24
DX: S80.261A Insect bite (nonvenomous), right knee, initial encounter (principal); Z79.899 Other long term (current) drug therapy; Z88.0 Allergy status to penicillin; Z88.1 Allergy status to other antibiotic agents; Z88.5 Allergy status to narcotic agent; Z88.8 Allergy status to other drugs, medicaments and biological substances; Z91.030 Bee allergy status; W57.XXXA Bitten or stung by nonvenomous insect and other nonvenomous arthropods, initial encounter; Y93.02 Activity, running
CPT/HCPCS: 99283; 96374; 96375 ×2; J2930; J1885

== ENCOUNTER → 2017-04-02 | Outpatient (CLI) | payer BC ==
--- NOTE | 2017-04-02 11:04 | MR ---
EXAMINATION TYPE: MR brain wo con DATE OF EXAM: 04/02/2017 COMPARISON: NONE HISTORY: MS TECHNIQUE: Multiplanar, multisequence images of the brain and brainstem is performed without intravenous contras t. Demyelinating disease protocol with additional Sagittal Flair sequence performed. FINDINGS: T2 Lesions Present : Yes Approximate Number of Lesions: 7 on the left and 8 on the right. Note the left-sided lesions are bett er seen on sagittal imaging Locations Identified : Subcortical and Juxtacortical. No infratentorial Size of Reference Lesion(s): 1. Right: 0.3 cm x 0.3 cm x 0.2 cm on axial image 19 and sagittal image 25 of FLAIR sequences 2. Left: 0.4 cm x 0.3 cm x 0.2 cm on axial image 17 and sagittal image 10 Enhancing Lesion(s) Present: Not applicable T1 Hypointense Lesion(s) Present: No Change from Prior: No prior Diffusion weighted images demonstrate no evidence of a recent infarct or other diffusion abnormality. There is no worrisome extra-axial fluid collection. The ventricular system and cisternal spaces ar e normal in size and appearance. The brain volume is age appropriate. Midline structures demonstrate normal morphology. The craniocervical junction appears within normal limits. There is scant mucosal thickening within the ethmoid sinuses. Otherwise the visualized parana constantino sinuses appear patent. The visualized sinuses are clear and the globes are intact. Major intracr anial flow voids are maintained. IMPRESSION: Multiple bilateral small scattered subcortical and juxtacortical white matter lesions in keeping with the patient's known diagnosis of multiple sclerosis. No lesions restricting diffusion to indicate active demyelination.
== END | disposition home or self-care (01) ==
LOC: RADMRIMAIN 09:57
PROVIDERS: ATTEND Neurological Surgery
DX: G35 Multiple sclerosis (principal); R90.82 White matter disease, unspecified
CPT/HCPCS: 70551

== ENCOUNTER → 2018-12-01 | Outpatient (CLI) | payer BC ==
--- NOTE | 2018-12-01 14:54 | MR ---
EXAMINATION TYPE: MR brain wo con DATE OF EXAM: 12/01/2018 COMPARISON: MRI brain dated 04/02/2017 HISTORY: lt side weakness, known multiple sclerosis TECHNIQUE: Multiplanar, multisequence images of the brain and brainstem is performed without intravenous contras t FINDINGS: T2 Lesions Present : Yes Approximate Number of Lesions: 9 on the left (previously 7) and 14 on the right (previously 8). Note the left-sided lesions are better seen on sagittal imaging Locations Identified : Subcortical and Juxtacortical. No infratentorial Size of Reference Lesion(s): 1. Right: 0.3 cm x 0.3 cm on axial image 19 and not seen on sagittal image and 2. Left: 0.4 cm x 0.3 cm cm on axial image 18 and not seen on sagittal imaging Enhancing Lesion(s) Present: Not applicable T1 Hypointense Lesion(s) Present: No Change from Prior: Increased Diffusion weighted images demonstrate no evidence of a recent infarct or other diffusion abnormality. Old punctate lacunar infarct is seen of the right lentiform nucleus on FLAIR axial fat-sat image 16 . There is no extra-axial fluid collection or significant white matter signal abnormality. The ventr icular system and cisternal spaces are normal in size and appearance. The brain volume is age approp riate. Midline structures demonstrate normal morphology. The craniocervical junction appears within normal limits. The dural venous sinuses appear patent. Scant mucosal thickening is present within the ethmo id sinuses. The remaining visualized sinuses are clear and the globes are intact. There is partial op acification of the right mastoid air cells. Left mastoid air cells remain well aerated. There is mild leftward nasal septal deviation noted. IMPRESSION: 1. Increase in number of nonspecific white matter foci, all subcentimeter. Again these are in keeping with this patient's history of multiple sclerosis. No lesions that restricted diffusion to indicate active demyelination. 2. Partial opacification of the right mastoid air cells. Correlate with point tenderness to exclude m astoiditis.
== END | disposition home or self-care (01) ==
LOC: RADMRIMAIN 12:43
PROVIDERS: ATTEND Family Medicine
DX: R53.1 Weakness (principal); Z86.69 Personal history of other diseases of the nervous system and sense organs
CPT/HCPCS: 70551

== ENCOUNTER → 2019-03-01 | Outpatient (CLI) | payer BC ==
--- NOTE | 2019-03-02 06:35 | MR ---
EXAMINATION TYPE: MR orbits wo/w con DATE OF EXAM: 03/01/2019 COMPARISON: Prior MRI brain December 01, 2018. Prior CT brain August 04, 2016. HISTORY: Lt eye optic neuritis, history of multiple sclerosis. TECHNIQUE: Multiplanar, multisequence images of the brain and brainstem is performed without and with IV contras t, utilizing 6 mL intravenous Gadavist . Orbital protocol. FINDINGS: Globes are intact bilaterally. Rectus muscles are symmetric and within normal limits. Optic nerves appear symmetric without asymmetric swelling or suspicious enhancement. Symmetric peripheral linear enhancement is noted. Optic chiasm is not effaced. Pituitary stalk shows normal enhancement in the midline. Suprasellar cistern is preserved. Craniocervical junction is within normal limits. Visualized brain parenchyma shows no hydrocephalus o r suspicious enhancement. Nasal septum remains slightly deviated to left of midline. Some patchy flui d signal right mastoid air cells is partially imaged similar to prior. IMPRESSION: Unremarkable MRI orbit study.
== END | disposition home or self-care (01) ==
LOC: RADMRIMAIN 18:30
PROVIDERS: ATTEND Ophthalmology
DX: H46.9 Unspecified optic neuritis (principal)
CPT/HCPCS: 70543; A9585

== ENCOUNTER 2020-02-24 19:45 | Observation (INO) | payer BC ==
[2020-02-24] MEDS ORDERED: SODIUM CHLORIDE 0.9% 500 ML 500 ML IV STA (21:09)
[2020-02-24] MEDS ORDERED: HYDROmorphone 0.5 MG/0.5 ML SYRINGE IVP STA (21:10)
[2020-02-24 21:19] LABS: Basophils # (A) 0.1 k/uL (0-0.2); Basophils % (A) 1 %; Eosinophils # (A) 0.2 k/uL (0-0.7); Eosinophils % (A) 2 %; HCT 47.4 % (34.0-46.0); HGB 15.7 gm/dL (11.4-16.0); Lymphocytes # (A) 0.9 k/uL (1.0-4.8); Lymphocytes % (A) 7 %; MCHC 33.2 g/dL (31.0-37.0); MCV 90.4 fL (80.0-100.0); Monocytes # (A) 0.3 k/uL (0-1.0); Monocytes % (A) 2 %; Neutrophils # (A) 12.2 k/uL (1.3-7.7); Neutrophils % (A) 88 %; Platelet Count 226 k/uL (150-450); RBC 5.25 m/uL (3.80-5.40); RDW 12.4 % (11.5-15.5); WBC 13.8 k/uL (3.8-10.6)
[2020-02-24 21:28] LABS: Albumin 4.5 g/dL (3.5-5.0); Calcium 9.7 mg/dL (8.4-10.2); Potassium 4.2 mmol/L (3.5-5.1); Total Bilirubin 0.5 mg/dL (0.2-1.3); Total Protein 7.6 g/dL (6.3-8.2)
--- NOTE | 2020-02-24 22:19 | CT ---
EXAMINATION TYPE: CT abdomen pelvis w con DATE OF EXAM: 02/24/2020 COMPARISON: 08/04/2016 HISTORY: Abdominal pain and blood in stool CT DLP: 883.5 mGycm Automated exposure control for dose reduction was used. CONTRAST: Performed with IV Contrast, patient injected with 100 mL of Isovue 300. There is some mild atelectasis at the lung bases. There is no pleural effusion. Heart size is normal. There is no pericardial effusion. The stomach is intact. There are clips from cholecystectomy. There is some fatty infiltration of the liver. There is no focal liver defect. The spleen appears intact. There is no evidence of pancreatic mass. There is no adrenal mass. Kidneys show satisfactory contrast opacification. There is no hydronephrosi s. Ureters are not dilated. There is no retroperitoneal adenopathy. Bladder distends smoothly. There is no inguinal hernia. There is no free fluid in the pelvis. Uterus is anteverted. There is no eviden ce of a pelvic mass. There is no mesenteric edema. There is no ascites or free air. There is no sign of a bowel obstructio n. Appendix is not seen. There is no sign of thickened appendix. The lumbar vertebra have normal alignment. There is no compression fracture. Bony pelvis is intact. T he hip joints are intact. IMPRESSION: Fatty infiltration of the liver. No dilated ducts. Minimal atelectasis at the lung bases. No adverse change compared to old exam.
[2020-02-24] MEDS ORDERED: NALOXONE 0.4 MG/ML 1 ML VIAL IV PRN (22:52)
--- NOTE | 2020-02-24 22:52 | ED ---
General Adult HPI - General Chief complaint: GI Bleed Stated complaint: Rectal bleeding/blood in stool Time Seen by Provider: 02/24/20 20:54 Source: patient, RN notes reviewed Mode of arrival: ambulatory Limitations: no limitations - History of Present Illness Initial comments: Patient is a 59-year-old female with a past medical history of appendectomy, cholecystectomy, fibromyalgia who presents to the emergency department for a chief complaint of rectal bleeding. Patient reports earlier today she had a bowel movement and noticed there was red blood mixed in with this. Patient reports that 3 other times since then she has had bleeding out of her rectum even without a bowel movement. Patient states she has been having abdominal pain both upper and lower on the left side. States that this started today. Patient denies nausea or vomiting. She denies fevers or chills.Patient has no other complaints at this time including shortness of breath, chest pain, nausea or vomiting, headache, or visual changes. - Related Data Home Medications Medication Instructions Recorded Confirmed Acetaminophen Tab [Tylenol] 500 mg PO ONCE PRN 02/24/20 02/24/20 Biotin 10,000 mcg PO HS 02/24/20 02/24/20 Ibuprofen [Motrin Ib] 200 mg PO ONCE PRN 02/24/20 02/24/20 Loratadine [Claritin] 10 mg PO HS 02/24/20 02/24/20 Melatonin 5 mg PO HS 02/24/20 02/24/20 Renick's Wort 150 mg PO HS 02/24/20 02/24/20 Allergies Allergy/AdvReac Type Severity Reaction Status Date / Time cephalexin monohydrate Allergy Rash/Hives Verified 02/24/20 22:24 [From Keflex] hydrocodone [From [place]] Allergy Rash/Hives Verified 02/24/20 22:24 Penicillins Allergy Anaphylaxis Verified 02/24/20 22:24 venom-honey bee Allergy Rash/Hives Verified 02/24/20 22:24 duloxetine [From Cymbalta] AdvReac Enhanced Verified 02/24/20 22:24 Pain meperidine HCl [From Demerol] AdvReac Hallucinati Verified 02/24/20 22:24 ons pregabalin [From Lyrica] AdvReac Altered Verified 02/24/20 22:24 Mental Status Review of Systems ROS Statement: Those systems with pertinent positive or pertinent negative responses have been documented in the HPI. ROS Other: All systems not noted in ROS Statement are negative. Past Medical History Past Medical History: Fibromyalgia Additional Past Medical History / Comment(s): L1-L4 fracture History of Any Multi-Drug Resistant Organisms: None Reported Past Surgical History: Appendectomy, Cholecystectomy, Orthopedic Surgery Additional Past Surgical History / Comment(s): eye sx, ovarian cyst,hand surgery Past Psychological History: No Psychological Hx Reported Past Alcohol Use History: Occasional Past Drug Use History: None Reported General Exam Limitations: no limitations Course Vital Signs 02/24/20 19:54 Temperature 97.9 F Pulse Rate 92 Respiratory 18 Rate Blood Pressure 177/107 O2 Sat by Pulse 97 Oximetry Medical Decision Making - Medical Decision Making Vitals are stable. Patient initially hypertensive likely secondary to pain. Patient does have left upper and lower abdominal tenderness. CBC does show leukocytosis. CMP unremarkable. Occult blood is positive. CT abdomen and pelvis showed fatty infiltration of the liver without dilated ducts. No adverse change compared to old exam. Given several episodes of moderate hematochezia patient will be admitted for GI consultation. - Lab Data Result diagrams: 02/24/20 21:16 02/24/20 21:16 Lab Results 02/24/20 02/24/20 02/24/20 Range/Units 21:16 21:16 21:16 WBC 13.8 H (3.8-10.6) k/uL RBC 5.25 (3.80-5.40) m/uL Hgb 15.7 (11.4-16.0) gm/dL Hct 47.4 H (34.0-46.0) % MCV 90.4 (80.0-100.0) fL MCH 30.0 (25.0-35.0) pg MCHC 33.2 (31.0-37.0) g/dL RDW 12.4 (11.5-15.5) % Plt Count 226 (150-450) k/uL MPV 9.0 Neutrophils % 88 % Lymphocytes % 7 % Monocytes % 2 % Eosinophils % 2 % Basophils % 1 % Neutrophils # 12.2 H (1.3-7.7) k/uL Lymphocytes # 0.9 L (1.0-4.8) k/uL Monocytes # 0.3 (0-1.0) k/uL Eosinophils # 0.2 (0-0.7) k/uL Basophils # 0.1 (0-0.2) k/uL Sodium 140 (137-145) mmol/L Potassium 4.2 (3.5-5.1) mmol/L Chloride 105 (98-107) mmol/L Carbon Dioxide 28 (22-30) mmol/L Anion Gap 7 mmol/L BUN 18 H (7-17) mg/dL Creatinine 0.92 (0.52-1.04) mg/dL Est GFR (CKD-EPI)AfAm 79 (>60 ml/min/1.73 sqM) Est GFR (CKD-EPI)NonAf 69 (>60 ml/min/1.73 sqM) Glucose 151 H (74-99) mg/dL Calcium 9.7 (8.4-10.2) mg/dL Total Bilirubin 0.5 (0.2-1.3) mg/dL AST 42 H (14-36) U/L ALT 43 H (4-34) U/L Alkaline Phosphatase 85 (38-126) U/L Total Protein 7.6 (6.3-8.2) g/dL Albumin 4.5 (3.5-5.0) g/dL Lipase 94 (23-300) U/L Stool Occult Blood Positive H (Negative) Blood Type Blood Type Recheck Bld Type Recheck Status Antibody Screen Spec Expiration Date 02/24/20 Range/Units 21:16 WBC (3.8-10.6) k/uL RBC (3.80-5.40) m/uL Hgb (11.4-16.0) gm/dL Hct (34.0-46.0) % MCV (80.0-100.0) fL MCH (25.0-35.0) pg MCHC (31.0-37.0) g/dL RDW (11.5-15.5) % Plt Count (150-450) k/uL MPV Neutrophils % % Lymphocytes % % Monocytes % % Eosinophils % % Basophils % % Neutrophils # (1.3-7.7) k/uL Lymphocytes # (1.0-4.8) k/uL Monocytes # (0-1.0) k/uL Eosinophils # (0-0.7) k/uL Basophils # (0-0.2) k/uL Sodium (137-145) mmol/L Potassium (3.5-5.1) mmol/L Chloride (98-107) mmol/L Carbon Dioxide (22-30) mmol/L Anion Gap mmol/L BUN (7-17) mg/dL Creatinine (0.52-1.04) mg/dL Est GFR (CKD-EPI)AfAm (>60 ml/min/1.73 sqM) Est GFR (CKD-EPI)NonAf (>60 ml/min/1.73 sqM) Glucose (74-99) mg/dL Calcium (8.4-10.2) mg/dL Total Bilirubin (0.2-1.3) mg/dL AST (14-36) U/L ALT (4-34) U/L Alkaline Phosphatase (38-126) U/L Total Protein (6.3-8.2) g/dL Albumin (3.5-5.0) g/dL Lipase (23-300) U/L Stool Occult Blood (Negative) Blood Type AB Positive Blood Type Recheck AB Pos Bld Type Recheck Status No Antibody Screen NEGATIVE Spec Expiration Date 02/27/20202315 Disposition Clinical Impression: Hematochezia, Abdominal pain Disposition: ADMITTED IP TO THIS HOSP Is patient prescribed a controlled substance at d/c from ED?: No Referrals: Corbin Johnson DO [Primary Care Provider] - 1-2 days Time of Disposition: 22:52
[2020-02-24 23:39] LABS: Appearance,Urine Clear (Clear); Bilirubin,Urine Negative (Negative); Blood,Urine Negative (Negative); Color,Urine Yellow; Glucose,Urine (UA) Negative (Negative); Ketones,Urine Negative (Negative); Leukocyte Esterase,Urine Negative (Negative); Nitrite,Urine Negative (Negative); Protein,Urine Negative (Negative); Urobilinogen,Urine <2.0 mg/dL (<2.0)
[2020-02-24 23:52] LABS: Specific Gravity,Urine >1.050 (1.001-1.035)
[2020-02-24] MEDS: SODIUM CHLORIDE 0.9% 1,000 ML IV SCH (23:55)
[2020-02-25] MEDS: HYDROmorphone 0.5 MG/0.5 ML SYRINGE IVP PRN ×5 (01:12→21:24)
[2020-02-25 09:17] LABS: Basophils % (A) 0 %; Eosinophils % (A) 0 %; HCT 40.7 % (34.0-46.0); HGB 13.1 gm/dL (11.4-16.0); Lymphocytes # (A) 2.2 k/uL (1.0-4.8); Lymphocytes % (A) 19 %; MCH 29.8 pg (25.0-35.0); MCHC 32.3 g/dL (31.0-37.0); MCV 92.3 fL (80.0-100.0); Mean Platelet Volume 9.2; Monocytes # (A) 0.4 k/uL (0-1.0); Monocytes % (A) 4 %; Neutrophils # (A) 9.1 k/uL (1.3-7.7); Neutrophils % (A) 77 %; Platelet Count 206 k/uL (150-450); RBC 4.41 m/uL (3.80-5.40); RDW 12.9 % (11.5-15.5); WBC 11.9 k/uL (3.8-10.6)
[2020-02-25] MEDS: PANTOPRAZOLE 40 MG/10 ML VIAL IVP SCH ×2 (10:18→21:24)
[2020-02-25] MEDS: ONDANSETRON 4 MG/2 ML VIAL IVP PRN ×2 (10:19→16:55)
--- NOTE | 2020-02-25 16:37 | P.HPIM ---
History of Present Illness 59-year-old female with a past medical history of appendectomy, cholecystectomy, fibromyalgia who presents to the emergency department for a chief complaint of rectal bleeding. Patient reports earlier today she had a bowel movement and noticed there was red blood mixed in with this. Patient reports that 3 other times since then she has had bleeding out of her rectum even without a bowel movement. Patient states she has been having abdominal pain both upper and lower on the left side. States that this started today. Patient denies nausea or vomiting. She denies fevers or chills.Patient has no other complaints at this time including shortness of breath, chest pain, nausea or vomiting, headache, or visual changes. Patient didn't have any blood in the stools since morning to the lunch patient was evaluated by gastroneurology and patient will undergo colonoscopy tomorrow. Patient does have history of multiple sclerosis relapsing and remitting type, doesn't have any new focal weakness. Review of Systems REVIEW OF SYSTEMS: CONSTITUTIONAL: No fever, no malaise, no fatigue. HEENT: No recent visual problems or hearing problems. Denied any sore throat. CARDIOVASCULAR: No chest pain, orthopnea, PND, no palpitations, no syncope. PULMONARY: No shortness of breath, no cough, no hemoptysis. GASTROINTESTINAL: No diarrhea, no nausea, no vomiting, no abdominal pain. NEUROLOGICAL: No headaches, no weakness, no numbness. HEMATOLOGICAL: Denies any bleeding or petechiae. GENITOURINARY: Denies any burning micturition, frequency, or urgency. MUSCULOSKELETAL/RHEUMATOLOGICAL: Denies any joint pain, swelling, or any muscle pain. ENDOCRINE: Denies any polyuria or polydipsia. The rest of the 14-point review of systems is negative. Past Medical History Past Medical History: Fibromyalgia, Musculoskeletal Disorder Additional Past Medical History / Comment(s): L1-L4 fracture History of Any Multi-Drug Resistant Organisms: None Reported Past Surgical History: Appendectomy, Cholecystectomy, Orthopedic Surgery Additional Past Surgical History / Comment(s): eye sx, ovarian cyst,hand surgery Past Psychological History: No Psychological Hx Reported Smoking Status: Never smoker Past Alcohol Use History: Occasional Past Drug Use History: None Reported Medications and Allergies Home Medications Medication Instructions Recorded Confirmed Type Acetaminophen Tab [Tylenol] 500 mg PO ONCE PRN 02/24/20 02/24/20 History Biotin 10,000 mcg PO HS 02/24/20 02/24/20 History Ibuprofen [Motrin Ib] 200 mg PO ONCE PRN 02/24/20 02/24/20 History Loratadine [Claritin] 10 mg PO HS 02/24/20 02/24/20 History Melatonin 5 mg PO HS 02/24/20 02/24/20 History Seffner's Wort 150 mg PO HS 02/24/20 02/24/20 History Allergies Allergy/AdvReac Type Severity Reaction Status Date / Time cephalexin monohydrate Allergy Rash/Hives Verified 02/24/20 22:24 [From Keflex] hydrocodone [From [place]] Allergy Rash/Hives Verified 02/24/20 22:24 Penicillins Allergy Anaphylaxis Verified 02/24/20 22:24 venom-honey bee Allergy Rash/Hives Verified 02/24/20 22:24 duloxetine [From Cymbalta] AdvReac Enhanced Verified 02/24/20 22:24 Pain meperidine HCl [From Demerol] AdvReac Hallucinati Verified 02/24/20 22:24 ons pregabalin [From Lyrica] AdvReac Altered Verified 02/24/20 22:24 Mental Status Physical Exam Vitals: Vital Signs Temp Pulse Pulse Resp BP BP Pulse Ox 02/25/20 11:00 98.9 F 85 15 162/85 98 02/25/20 05:00 99.3 F 99 20 161/82 96 02/25/20 01:00 98.7 F 98 20 169/93 97 02/24/20 23:10 99 18 162/99 98 02/24/20 19:54 97.9 F 92 18 177/107 97 Intake and Output 02/25/20 02/25/20 02/25/20 06:59 14:59 22:59 Intake Total 0 Balance 0 Intake: Oral 0 Other: # Voids 1 Weight 65.771 kg PHYSICAL EXAMINATION: GENERAL: The patient is alert and oriented x3, not in any acute distress. Well developed, well nourished. HEENT: Pupils are round and equally reacting to light. EOMI. No scleral icterus. No conjunctival pallor. Normocephalic, atraumatic. No pharyngeal erythema. No thyromegaly. CARDIOVASCULAR: S1 and S2 present. No murmurs, rubs, or gallops. PULMONARY: Chest is clear to auscultation, no wheezing or crackles. ABDOMEN: Soft, nontender, nondistended, normoactive bowel sounds. No palpable organomegaly. MUSCULOSKELETAL: No joint swelling or deformity. EXTREMITIES: No cyanosis, clubbing, or pedal edema. NEUROLOGICAL: Gross neurological examination did not reveal any focal deficits. SKIN: No rashes. Results CBC & Chem 7: 02/25/20 08:55 02/24/20 21:16 Labs: Abnormal Lab Results - Last 24 Hours (Table) 02/24/20 02/24/20 02/24/20 Range/Units 21:16 21:16 21:16 WBC 13.8 H (3.8-10.6) k/uL Hct 47.4 H (34.0-46.0) % Neutrophils # 12.2 H (1.3-7.7) k/uL Lymphocytes # 0.9 L (1.0-4.8) k/uL BUN 18 H (7-17) mg/dL Glucose 151 H (74-99) mg/dL AST 42 H (14-36) U/L ALT 43 H (4-34) U/L Ur Specific [place] (1.001-1.035) Stool Occult Blood Positive H (Negative) 02/24/20 02/25/20 Range/Units 23:19 08:55 WBC 11.9 H (3.8-10.6) k/uL Hct (34.0-46.0) % Neutrophils # 9.1 H (1.3-7.7) k/uL Lymphocytes # (1.0-4.8) k/uL BUN (7-17) mg/dL Glucose (74-99) mg/dL AST (14-36) U/L ALT (4-34) U/L Ur Specific [place] >1.050 H (1.001-1.035) Stool Occult Blood (Negative) Thrombosis Risk Factor Assmnt - Choose All That Apply Each Factor Represents 1 point: Age 41-60 years, Obesity (BMI >25) Thrombosis Risk Factor Assessment Total Risk Factor Score: 2 Thrombosis Risk Factor Assessment Level: Low Risk Assessment and Plan Plan: -Hematochezia: Etiology is not clear patient's daughter doesn't appear to have any hemorrhoids patient will undergo colonoscopy. -Leukocytosis reactive without any evidence of infection and secondary to GI bleed -multiple sclerosis: no evidence of flareup at this time patient has relapsing and remitting multiple sclerosis
[2020-02-25] MEDS: SODIUM CHLORIDE 0.9% 1,000 ML IV SCH (16:54)
[2020-02-25] MEDS ORDERED: PEG 3350-NA SULF,BICARB,CL/KCL 4,000 ML BOTTLE PO ONE (17:00)
--- NOTE | 2020-02-25 22:23 | P.CONS ---
History of Present Illness - Reason for Consult Consult date: 02/25/20 Hematochezia Requesting physician: Wally Thomas - Chief Complaint Blood per rectum - History of Present Illness 59-year-old female with multiple medical comorbidities including MS, fibromyalgia, prior history of appendectomy and cholecystectomy who presented to the hospital due to symptoms of blood per rectum. The patient reports initially developing abdominal cramping with loose liquid stool. Patient had cold sweats in association with the symptoms and reported severe pain. She subsequently had further episodes of diarrhea and then passage of large amounts of bright red blood per rectum and clots. She has no prior history of rectal bleeding. She denies any use of blood thinners/anticoagulation therapy. Only occasional use of ibuprofen as needed. At baseline she reports constipation usually having bowel movements every 5-6 days. Stool testing on presentation positive for occult blood. Laboratory evaluation significant for hemoglobin of 15.7 and subsequently 13.1, WBC 11.9, platelet count 206,000, total bilirubin 0.5, alkaline phosphatase 85, AST 42 and ALT 43 with computed tomography scan of the abdomen performed in evaluation and significant for fatty liver with known dilated ducts, atelectasis and no acute intra-abdominal pathology noted. Review of Systems REVIEW OF SYSTEMS: CONSTITUTIONAL: Denies any fevers, weight change or fatigue, but she does report chills with her symptoms. CARDIOVASCULAR: Denies any chest pain, palpitations high or low blood pressures RESPIRATORY: Denies any shortness of breath, hemoptysis or cough. GENITOURINARY: No dysuria or hematuria. MUSCULOSKELETAL: No weakness reported. SKIN: Denies any new rashes or lesions, jaundice or pallor. PSYCHIATRIC: Denies any depression or anxiety. NEUROLOGY: Denies headache, denies any new focal deficits. EARS/NOSE/THROAT: No recent hearing change, congestion, nasal discharge or sore throat. EYES: No pain in eyes, discharge or change in vision. GASTROINTESTINAL: As per HPI. Past Medical History Past Medical History: Fibromyalgia, Musculoskeletal Disorder Additional Past Medical History / Comment(s): L1-L4 fracture History of Any Multi-Drug Resistant Organisms: None Reported Past Surgical History: Appendectomy, Cholecystectomy, Orthopedic Surgery Additional Past Surgical History / Comment(s): eye sx, ovarian cyst,hand surgery Past Psychological History: No Psychological Hx Reported Smoking Status: Never smoker Past Alcohol Use History: Occasional Past Drug Use History: None Reported Additional History: Family history: Reviewed with the patient noncontributory to current medical presentation. Medications and Allergies Home Medications Medication Instructions Recorded Confirmed Type Acetaminophen Tab [Tylenol] 500 mg PO ONCE PRN 02/24/20 02/24/20 History Biotin 10,000 mcg PO HS 02/24/20 02/24/20 History Ibuprofen [Motrin Ib] 200 mg PO ONCE PRN 02/24/20 02/24/20 History Loratadine [Claritin] 10 mg PO HS 02/24/20 02/24/20 History Melatonin 5 mg PO HS 02/24/20 02/24/20 History Margot's Wort 150 mg PO HS 02/24/20 02/24/20 History Allergies Allergy/AdvReac Type Severity Reaction Status Date / Time cephalexin monohydrate Allergy Rash/Hives Verified 02/24/20 22:24 [From Keflex] hydrocodone [From [place]] Allergy Rash/Hives Verified 02/24/20 22:24 Penicillins Allergy Anaphylaxis Verified 02/24/20 22:24 venom-honey bee Allergy Rash/Hives Verified 02/24/20 22:24 duloxetine [From Cymbalta] AdvReac Enhanced Verified 02/24/20 22:24 Pain meperidine HCl [From Demerol] AdvReac Hallucinati Verified 02/24/20 22:24 ons pregabalin [From Lyrica] AdvReac Altered Verified 02/24/20 22:24 Mental Status Physical Exam Vitals: Vital Signs Temp Pulse Pulse Resp BP BP Pulse Ox 02/25/20 11:00 98.9 F 85 15 162/85 98 02/25/20 05:00 99.3 F 99 20 161/82 96 02/25/20 01:00 98.7 F 98 20 169/93 97 02/24/20 23:10 99 18 162/99 98 02/24/20 19:54 97.9 F 92 18 177/107 97 Intake and Output 02/24/20 02/25/20 02/25/20 22:59 06:59 14:59 Intake Total 0 Balance 0 Intake: Oral 0 Other: # Voids 1 Weight 65.771 kg 65.771 kg On physical examination, patient appears comfortable in no apparent distress. HEAD: Normocephalic, atraumatic. EYES: No scleral icterus. No conjunctival injection. MOUTH: No lesions, tongue midline. NECK: Trachea midline, no gross abnormalities. CHEST: Clear to auscultation with no wheezing or rhonchi appreciated. HEART: Regular rate and rhythm. ABDOMEN: Soft, mildly tender to palpation diffusely. Bowel sounds are positive. No organomegaly. No guarding or rigidity. EXTREMITIES: No pedal edema. SKIN: No rashes, no jaundice. NEUROLOGIC: Alert and oriented x3. No focal deficits. Results CBC & Chem 7: 02/25/20 08:55 02/24/20 21:16 Labs: Abnormal Lab Results - Last 24 Hours (Table) 02/24/20 02/24/20 02/24/20 Range/Units 21:16 21:16 21:16 WBC 13.8 H (3.8-10.6) k/uL Hct 47.4 H (34.0-46.0) % Neutrophils # 12.2 H (1.3-7.7) k/uL Lymphocytes # 0.9 L (1.0-4.8) k/uL BUN 18 H (7-17) mg/dL Glucose 151 H (74-99) mg/dL AST 42 H (14-36) U/L ALT 43 H (4-34) U/L Ur Specific [place] (1.001-1.035) Stool Occult Blood Positive H (Negative) 02/24/20 02/25/20 Range/Units 23:19 08:55 WBC 11.9 H (3.8-10.6) k/uL Hct (34.0-46.0) % Neutrophils # 9.1 H (1.3-7.7) k/uL Lymphocytes # (1.0-4.8) k/uL BUN (7-17) mg/dL Glucose (74-99) mg/dL AST (14-36) U/L ALT (4-34) U/L Ur Specific [place] >1.050 H (1.001-1.035) Stool Occult Blood (Negative) CT scan - abdomen: report reviewed (Computed tomography scan of the abdomen with findings of fatty liver with no dilated ducts and atelectasis, no acute intra- abdominal pathology noted.) Assessment and Plan (1) Hematochezia Narrative/Plan: 59-year-old female with medical comorbidities presenting with blood per rectum. She reports severe cramping abdominal pain with chills in association with diarrhea and subsequent episodes of bright red blood and clots per rectum. Hemoglobin 15.7 on presentation and subsequently 13.1. Stool testing positive for blood. Last colonoscopy 5-6 years ago per her recollection. Computed tomography scan of the abdomen negative for any acute intra-abdominal pathology with fatty liver noted. Unclear etiology, may be related to particular bleed, AVM, stercoral ulcer in the setting of chronic constipation, or other etiology. Current Visit: Yes Status: Acute Code(s): K92.1 - MELENA SNOMED Code(s): 864327148 (2) Abdominal pain Current Visit: Yes Status: Acute Code(s): R10.9 - UNSPECIFIED ABDOMINAL PAIN SNOMED Code(s): 19821105 Plan: Supportive care Clear liquid diet Bowel prep ordered Continue monitor hemoglobin and hematocrit and transfuse as needed Plan for colonoscopy tomorrow for further evaluation with all of the risks, benefits and possible complications of the procedure described with patient at length with all of her questions answered to her satisfaction Avoid NSAID use, will hold any anticoagulation at this time Thank you for allowing us to participate in the care of the patient
[2020-02-26 07:29] LABS: HCT 35.9 % (34.0-46.0); HGB 12.2 gm/dL (11.4-16.0); MCH 30.8 pg (25.0-35.0); MCHC 34.2 g/dL (31.0-37.0); MCV 90.1 fL (80.0-100.0); Mean Platelet Volume 8.8; Platelet Count 169 k/uL (150-450); RBC 3.98 m/uL (3.80-5.40); RDW 12.6 % (11.5-15.5); WBC 12.1 k/uL (3.8-10.6)
[2020-02-26] MEDS: PANTOPRAZOLE 40 MG/10 ML VIAL IVP SCH (08:29)
[2020-02-26] MEDS ORDERED: PROPOFOL 10 MG/ML 20 ML VIAL IV ONE (10:13)
[2020-02-26] MEDS ORDERED: IV FLUID CONTINUATION 1,000 ML IV ONE (10:13)
[2020-02-26] MEDS ORDERED: LIDOCAINE 1% INJ 10MG/ML (20 ML MDV) ONE (10:13)
[2020-02-26] MEDS ORDERED: TRIMETHOBENZAMIDE 100 MG/ML 2 ML VIAL IM PRN (10:56)
--- NOTE | 2020-02-26 11:06 | P.PCN ---
Date of Procedure: 02/26/20 Description of Procedure: BRIEF HISTORY: 59-year-old female with multiple medical comorbidities including MS, fibromyalgia, prior history of appendectomy and cholecystectomy who presented to the hospital due to symptoms of blood per rectum. The patient reports initially developing abdominal cramping with loose liquid stool. Patient had cold sweats in association with the symptoms and reported severe pain. She subsequently had further episodes of diarrhea and then passage of large amounts of bright red blood per rectum and clots. She has no prior history of rectal bleeding. She denies any use of blood thinners/anticoagulation therapy. Only occasional use of ibuprofen as needed. At baseline she reports constipation usually having bowel movements every 5-6 days. Stool testing on presentation positive for occult blood. Laboratory evaluation significant for hemoglobin of 15.7 and subsequently 13.1. Computed tomography scan of the abdomen performed in evaluation and significant for fatty liver with known dilated ducts, atelectasis and no acute intra-abdominal pathology noted. PROCEDURE PERFORMED: Incomplete colonoscopy with biopsy. PREOPERATIVE DIAGNOSIS: Hematochezia, abdominal pain. ESTIMATED BLOOD LOSS: Minimal. IV sedation per Anesthesia. PROCEDURE: After informed consent was obtained, the patient, was brought into the endoscopy unit. IV sedation was administered by Anesthesia under continuous monitoring. Digital rectal examination was normal. Initially the Olympus CF-190 flexible video colonoscope was then inserted in the rectum, gradually advanced into the transverse colon without difficulty. Careful examination was performed as the sc ope was gradually being withdrawn. Prep was fair with a large amount of liquid and some semisolid debris noted. Mucosa of the transverse colon, sigmoid colon and rectum appeared normal, however in the descending colon there were large areas of erythema and superficial ulceration suggestive of possible ischemic colitis with biopsies taken. Retroflexion was performed in the rectum and no lesions were seen. The patient tolerated the procedure well. IMPRESSION: Moderate descending colitis, suspicion is for ischemic colitis, biopsies of the descending colon taken. Other examined colon mucosa of the transverse colon, sigmoid colon and rectum appeared normal. Fair prep. Incomplete colonoscopy. RECOMMENDATIONS: Findings of this examination were discussed with the patient. Okay for full liquid diet. Will initiate antibiotic therapy with levofloxacin for suspected ischemic colitis. Continue to monitor labs and clinically. Continue other medical management per primary team. Recommend repeat colonoscopy in 4-6 weeks to check for healing, with full colonoscopy at that time.
[2020-02-26] MEDS: HYDROmorphone 0.5 MG/0.5 ML SYRINGE IVP PRN (11:31)
[2020-02-26] MEDS ORDERED: LEVOFLOXACIN 500MG-D5W PMX 500 MG in DEXTROSE/WATER 1 100ML.BAG IVPB SCH (12:00)
[2020-02-26 12:23] LABS: African American GFR (CKD) 109.9 (60.0-200.0); Anion Gap 6.3 mmol/L (4.00-12.00); BUN/Creat Ratio 11.43 Ratio (12.00-20.00); Calcium 8.7 mg/dL (8.7-10.3); Carbon Dioxide 28.7 mmol/L (21.6-31.8); Non-African American GFR(CKD) 94.8 (60.0-200.0)
[2020-02-26 13:17] VITALS: BP 147/89; PULSE 82; RESP 20; TEMP 97.9
--- NOTE | 2020-02-26 15:05 | P.DS ---
Providers Date of admission: 02/24/20 23:10 Attending physician: Charlie Craig Consults: 02/24/20 22:53 Consult Physician Routine Consulting Provider: Patrick Conti Consult Reason/Comments: GI bleed Do you want consulting provider notified?: Yes Primary care physician: Corbin [facility] Course: 59-year-old female with a past medical history of appendectomy, cholecystectomy, fibromyalgia who presents to the emergency department for a chief complaint of rectal bleeding. Patient reports earlier today she had a bowel movement and noticed there was red blood mixed in with this. Patient reports that 3 other times since then she has had bleeding out of her rectum even without a bowel movement. Patient states she has been having abdominal pain both upper and lower on the left side. States that this started today. Patient denies nausea or vomiting. She denies fevers or chills.Patient has no other complaints at this time including shortness of breath, chest pain, nausea or vomiting, headache, or visual changes. Patient didn't have any blood in the stools since morning to the lunch patient was evaluated by gastroneurology and patient will undergo colonoscopy tomorrow. Patient does have history of multiple sclerosis relapsing and remitting type, doesn't have any new focal weakness. 02/26/2020 Patient underwent colonoscopy which showed colitis possibility of ischemic colitis gastroneurology is recommending antibiotic that levofloxacin for about a week and patient will be discharged on that levofloxacin. PHYSICAL EXAMINATION: GENERAL: The patient is alert and oriented x3, not in any acute distress. Well developed, well nourished. HEENT: Pupils are round and equally reacting to light. EOMI. No scleral icterus. No conjunctival pallor. Normocephalic, atraumatic. No pharyngeal erythema. No thyromegaly. CARDIOVASCULAR: S1 and S2 present. No murmurs, rubs, or gallops. PULMONARY: Chest is clear to auscultation, no wheezing or crackles. ABDOMEN: Soft, nontender, nondistended, normoactive bowel sounds. No palpable organomegaly. MUSCULOSKELETAL: No joint swelling or deformity. EXTREMITIES: No cyanosis, clubbing, or pedal edema. NEUROLOGICAL: Gross neurological examination did not reveal any focal deficits. SKIN: No rashes. -Hematochezia: Colitis possibility of ischemic or infectious -Leukocytosis probably secondary to colitis -multiple sclerosis: no evidence of flareup at this time patient has relapsing and remitting multiple sclerosis Plan - Discharge Summary Discharge Rx Participant: Yes New Discharge Prescriptions: New levoFLOXacin 500 mg PO DAILY 7 Days #7 tab Continue Ibuprofen [Motrin Ib] 200 mg PO ONCE PRN PRN Reason: Pain Discontinued Margot's Wort 150 mg PO HS No Action Loratadine [Claritin] 10 mg PO HS Melatonin 5 mg PO HS Biotin 10,000 mcg PO HS Acetaminophen Tab [Tylenol] 500 mg PO ONCE PRN PRN Reason: Pain Discharge Medication List Acetaminophen Tab [Tylenol] 500 mg PO ONCE PRN 02/24/20 [History] Biotin 10,000 mcg PO HS 02/24/20 [History] Ibuprofen [Motrin Ib] 200 mg PO ONCE PRN 02/24/20 [History] Loratadine [Claritin] 10 mg PO HS 02/24/20 [History] Melatonin 5 mg PO HS 02/24/20 [History] levoFLOXacin 500 mg PO DAILY 7 Days #7 tab 02/26/20 [Rx] Follow up Appointment(s)/Referral(s): Corbin Johnson DO [Primary Care Provider] - 3 Days Patient Instructions/Handouts: Levofloxacin (By mouth) Activity/Diet/Wound Care/Special Instructions: full diet for 2 days and soft diet for a week after that limit activity until seen by DR> Discharge Disposition: HOME SELF-CARE
== END 2020-02-26 14:52 | disposition home or self-care (01) ==
LOC: EC 19:45 → 6NMEDSUR 23:10
PROVIDERS: ADMIT Internal Medicine; ATTEND Internal Medicine
DX: K52.9 Noninfective gastroenteritis and colitis, unspecified (principal); D72.829 Elevated white blood cell count, unspecified; K76.0 Fatty (change of) liver, not elsewhere classified; G35 Multiple sclerosis; M79.7 Fibromyalgia; E66.9 Obesity, unspecified; Z68.26 Body mass index [BMI] 26.0-26.9, adult; Z79.1 Long term (current) use of non-steroidal anti-inflammatories (NSAID); Z79.899 Other long term (current) drug therapy; Z88.1 Allergy status to other antibiotic agents; Z88.5 Allergy status to narcotic agent; Z88.0 Allergy status to penicillin; Z88.8 Allergy status to other drugs, medicaments and biological substances; Z87.81 Personal history of (healed) traumatic fracture; Z90.49 Acquired absence of other specified parts of digestive tract; Z87.42 Personal history of other diseases of the female genital tract; Z98.890 Other specified postprocedural states
CPT/HCPCS: 96376 ×2; 96375; 96361; 96374; 99285; 36415; 86900; 86901; 88305; 80053; 80048; 83690; 85025 ×2; 85027; 86850; 82272; 81003; 87324; 87045; 87046; 74177; 45380; G0378 ×3; J2405; J1956; J2001; J2704; C9113 ×2; J1170 ×3; Q9967

== ENCOUNTER 2020-03-20 09:59 | Day surgery (SDC) | payer BC ==
[2020-03-16 14:27] VITALS: BMI 25.9
[~2020-03-20 09:59] MED LIST: LACTATED RINGERS 1,000 ML IV SCH
[2020-03-20 10:28] VITALS: RESP 16; TEMP 97.5
[2020-03-20] MEDS ORDERED: ONDANSETRON 4 MG/2 ML VIAL ONE (10:34)
[2020-03-20] MEDS ORDERED: ONDANSETRON 4 MG/2 ML VIAL IVP ONE (10:36)
[2020-03-20] MEDS ORDERED: PROPOFOL 10 MG/ML 20 ML VIAL IV ONE (11:36)
--- NOTE | 2020-03-20 12:17 | P.PCN ---
Date of Procedure: 03/20/20 Description of Procedure: BRIEF HISTORY: Patient is a 59-year-old female presenting for outpatient colonoscopy for evaluation of colitis, blood per rectum, change in bowel habits. Patient continued in the hospital with complaints of abdominal pain, diarrhea and blood per rectum. At that time she was taken for a colonoscopy which was incomplete due to poor prep with findings of moderate descending colitis with biopsies consistent with ischemic colitis. PROCEDURE PERFORMED: Colonoscopy with polypectomy. PREOPERATIVE DIAGNOSIS: Colitis, blood per rectum, change in bowel habits. ESTIMATED BLOOD LOSS: Minimal. IV sedation per Anesthesia. PROCEDURE: After informed consent was obtained, the patient, was brought into the endoscopy unit. IV sedation was administered by Anesthesia under continuous monitoring. Digital rectal examination was normal. Initially the Olympus CF-190 flexible video colonoscope was then inserted in the rectum, gradually advanced into the cecum without any difficulty. Careful examination was performed as the scope was gradually being withdrawn. Ileocecal valve and the appendiceal orifice were visualized and appeared normal. Prep was excellent. Mucosa of the cecum, ascending colon, transverse colon, descending colon, sigmoid colon, and rectum appeared normal, with prior area of ischemia well-healed. Low-grade internal hemorrhoids noted. A diminutive 2 mm cecal polyp was removed with cold forcep polypectomy. Retroflexion was performed in the rectum and no lesions were seen. The patient tolerated the procedure well. IMPRESSION: Diminutive cecal polyp removed with cold forceps. Previously seen colitis in the descending colon well-healed, consistent with biopsy findings of ischemic colitis. RECOMMENDATIONS: Findings of this examination were discussed with the patient . Okay to resume diet. Okay to resume medications. Await pathology from polypectomy. Recommend repeat colonoscopy in 7 years for colon polyps or any pathology from polypectomy.
[2020-03-20 12:35] VITALS: BP 129/79; PULSE 77
== END 2020-03-20 12:51 | disposition home or self-care (01) ==
LOC: ORWHC2ENDO 09:59
PROVIDERS: ATTEND Internal Medicine
DX: D12.0 Benign neoplasm of cecum (principal); K64.8 Other hemorrhoids; K52.9 Noninfective gastroenteritis and colitis, unspecified; M79.7 Fibromyalgia; Z87.19 Personal history of other diseases of the digestive system; Z90.89 Acquired absence of other organs; Z90.49 Acquired absence of other specified parts of digestive tract; Z98.890 Other specified postprocedural states; Z79.899 Other long term (current) drug therapy
CPT/HCPCS: 88305; 45380; J2405; J2704

== ENCOUNTER → 2022-10-03 | Outpatient (CLI) | payer BC ==
--- NOTE | 2022-10-03 15:19 | XR ---
EXAM TYPE: LUMBAR SPINE X RAY SERIES COMPARISON: 05/24/2016 HISTORY: Pain TECHNIQUE: 4 views are submitted. FINDINGS: Alignment is anatomic. The pedicles are intact. The transverse processes are intact. There is no s pondylolisthesis. Surgical clips in the right upper quadrant and pelvis. There is multilevel hypertr ophic and degenerative change. IMPRESSION: 1. Multilevel mild to moderate hypertrophic and degenerative disc disease. There is facet arthropathy of the lower lumbar spine. Recommend follow-up MRI.
--- NOTE | 2022-10-03 15:23 | XR ---
EXAMINATION TYPE: XR cervical spine w flex/ext DATE OF EXAM: 10/03/2022 COMPARISON: NONE HISTORY: Pain TECHNIQUE: 7 views are submitted including flexion and extension lateral views. FINDINGS: The odontoid is intact. There are no compression deformities. The prevertebral soft tissue structur es are within normal limits. There is posterior spondylosis C4-5 and C5-C6 with mild disc disease C5-C6. There is slight anterolisthesis on flexion views at C2-C3, C3 on C4, C4-C5, and C6 and C7. IMPRESSION: 1. Mild to moderate degenerative disc disease C4-5 and C5-C6 with posterior spondylosis and bilateral foraminal encroachment. Recommend follow-up MRI.
== END | disposition home or self-care (01) ==
LOC: RADXRMAIN 14:12
PROVIDERS: ATTEND Family Medicine
DX: M51.36 Other intervertebral disc degeneration, lumbar region (principal); M47.816 Spondylosis without myelopathy or radiculopathy, lumbar region; M50.321 Other cervical disc degeneration at C4-C5 level; M47.812 Spondylosis without myelopathy or radiculopathy, cervical region; M99.71 Connective tissue and disc stenosis of intervertebral foramina of cervical region
CPT/HCPCS: 72052; 72110

== ENCOUNTER → 2022-12-18 | Outpatient (CLI) | payer BC ==
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
== END | disposition home or self-care (01) ==
LOC: RADMRIMAIN 14:02
PROVIDERS: ATTEND Family Medicine
DX: M50.222 Other cervical disc displacement at C5-C6 level (principal); M99.72 Connective tissue and disc stenosis of intervertebral foramina of thoracic region; M47.812 Spondylosis without myelopathy or radiculopathy, cervical region; M54.50 Low back pain, unspecified
CPT/HCPCS: 72141; 72148

== ENCOUNTER → 2024-03-16 | Outpatient (CLI) | payer BC ==
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
== END | disposition home or self-care (01) ==
LOC: RADMRIMAIN 20:45
PROVIDERS: ATTEND Family Medicine
DX: M51.A3 Intervertebral annulus fibrosus defect, lumbosacral region, unspecified size (principal); G45.0 Vertebro-basilar artery syndrome; R90.82 White matter disease, unspecified
CPT/HCPCS: 70551; 72148